=== PATIENT | male | born 1965 | race Caucasian/White ===

== ENCOUNTER 2021-11-16 07:08 | Inpatient (IN) | payer MEDICAID ==
[~2021-11-16] VITALS: Ht 170.2 cm; Wt 90.5 kg
[2021-11-16] MEDS ORDERED: acetaminophen 325mg tablet PO STA (07:10)
--- NOTE | 2021-11-16 07:23 | NUR ---
RT PAGED FOR POSSIBLE INTUBATION. INTUBATION NOT NEEDED. OXYGEN WEANED PER DR. DUKES REQUEST. PATIENT ARRIVED ON 15L NRB, SPO2 100%. RT SWITCHED PATIENT TO 10L SIMPLE MASK, SPO2 98%. PATIENT IN NO DISTRESS AT THIS TIME.
[2021-11-16] MEDS ORDERED: HYDROmorphone 1 mg/ml syringe IV ONE ×2 (07:35→09:20)
--- NOTE | 2021-11-16 07:39 | NUR ---
medication list faxed to pharmacy for med rec completion
[2021-11-16 07:43] LABS: BASOPHILS # (AUTO) 0.1 X10'3 (0-0.2); BASOPHILS % (AUTO) 0.3 % (0-1); EOSINOPHILS % (AUTO) 0.1 % (0-6); HEMATOCRIT 26.1 % (42.0-52.0); HEMOGLOBIN 8.6 g/dl (14.0-17.9); LYMPHOCYTES # (AUTO) 1.2 X10'3 (1.1-4.8); LYMPHOCYTES % (AUTO) 8.3 % (21-51); MEAN CORPUSCULAR HEMOGLOBIN 28.9 PG (27.0-31.0); MEAN CORPUSCULAR HGB CONC 33.2 g/dL (33.0-36.5); MEAN PLATELET VOLUME 7.8 FL (7.4-10.4); MONOCYTES # (AUTO) 1.1 X10'3 (0-0.9); MONOCYTES % (AUTO) 7.7 % (2-12); NEUTROPHILS # (AUTO) 12.3 X10'3 (1.8-7.7); NEUTROPHILS % (AUTO) 83.6 % (42-75); PLATELET COUNT 702 X10'3 (140-440); RED BLOOD COUNT 2.99 X10'6 (4.70-6.10); RED CELL DISTRIBUTION WIDTH 15.1 % (11.5-14.5); WHITE BLOOD COUNT 14.7 X10'3 (4.5-11.0)
[2021-11-16] MEDS ORDERED: iohexol 350MG/ML 100ml bottle IV ONE (07:50)
[2021-11-16 07:59] LABS: APTT 26 SECONDS (22-32)
[2021-11-16] MEDS ORDERED: acetaminophen 1,000mg/100ml IV 100 ML IV SCH (08:00)
[2021-11-16] MEDS ORDERED: acetaminophen 1,000mg/100ml IV 100 ML IV PRN (08:00)
[2021-11-16 08:04] LABS: ALANINE AMINOTRANSFERASE 12 U/L (12-78); ALBUMIN 1.6 G/DL (3.4-5.0); ALBUMIN/GLOBULIN RATIO 0.3 (1.1-1.5); ALKALINE PHOSPHATASE 118 IU/L (46-116); ANION GAP 7 (8-16); ASPARTATE AMINO TRANSFERASE 18 U/L (10-37); BILIRUBIN,TOTAL 1.7 MG/DL (0.1-1.0); BLOOD UREA NITROGEN 9 MG/DL (7-18); BUN/CREATININE RATIO 15.3 (5.4-32.0); CALCIUM 7.7 MG/DL (8.5-10.1); CHLORIDE 97 MMOL/L (99-107); CREATININE 0.59 MG/DL (0.60-1.10); GLUCOSE 254 MG/DL (70-104); MAGNESIUM 1.7 MG/DL (1.5-2.4); POTASSIUM 4.2 MMOL/L (3.5-5.1); SODIUM 129 MMOL/L (135-145); TOTAL CARBON DIOXIDE 25.5 MMOL/L (24-32); TOTAL PROTEIN 7.1 G/DL (6.4-8.2); eGFR > 90 ML/MIN
[2021-11-16] MEDS: normal saline 1000ml 1,000 ML IV SCH ×5 (08:04→22:29)
--- NOTE | 2021-11-16 08:15 | NUR ---
Pt back from CT. Updated on plan of care. Pt resting comfortably, no apparent distress/needs at this time.
[2021-11-16 08:46] LABS: NUCLEATED RED BLOOD CELLS 1 /100WBC (0-0); TOTAL CELLS COUNTED 100
[2021-11-16 08:47] LABS: PLATELET ESTIMATE INCREASED; POLYCHROMASIA 1+; STOMATOCYTES 1+
--- NOTE | 2021-11-16 09:03 | NUR ---
Pt states pain 02/24, will notify md. pt feels cool and clammy. warm blankets provided.
--- NOTE | 2021-11-16 09:40 | NUR ---
Trialed pt without O2. Pt needs 2-4L/min to maintain O2 94%.
[2021-11-16] MEDS ORDERED: piperacillin/tazo 3.375gm/50ml 50 ML IV ONE (09:50)
--- NOTE | 2021-11-16 10:40 | NUR ---
Assisted pt with urinal. UA obtained and sent.
[2021-11-16 10:57] LABS: CLARITY,URINE CLEAR (Clear); COLOR,URINE YELLOW (Yellow); GLUCOSE, URINE NEGATIVE (Neg); KETONES,URINE NEGATIVE (Neg); LEUKOCYTE ESTERASE ,URINE NEGATIVE (Neg); NITRITES, URINE NEGATIVE (Neg); OCCULT BLOOD,URINE NEGATIVE (Neg); PROTEIN,URINE NEGATIVE (Neg); UROBILINOGEN,URINE 0.2 E.U/dL (0.2-1.0)
[2021-11-16 10:59] LABS: UA COLLECTION TYPE NON-SPECIFIED
[2021-11-16] MEDS: HYDROmorphone 1 mg/ml syringe IV PRN ×3 (11:57→19:40)
[2021-11-16] MEDS ORDERED: ondansetron/PF 4mg/2ml inj IV PRN (12:05)
[2021-11-16] MEDS ORDERED: metoclopramide 5 mg/ml inj IV PRN (12:05)
[2021-11-16] MEDS ORDERED: acetaminophen 325mg tablet PO PRN ×2 (12:05)
[2021-11-16] MEDS ORDERED: mag hydrox/Alum hydrox/simeth 30ml oral suspension PO PRN (12:05)
[2021-11-16] MEDS ORDERED: morphine 2 MG/ML inj. syringe IV PRN ×2 (12:05)
[2021-11-16] MEDS ORDERED: HYDROcodone/acetaminophen 10/325mg tab PO PRN (12:05)
[2021-11-16] MEDS ORDERED: HYDROcodone/acetaminophen 5mg/325mg tablet PO PRN (12:05)
[2021-11-16] MEDS ORDERED: potassium CL 10mEq/100ml bag 100 ML IV PRN (12:05)
[2021-11-16] MEDS ORDERED: magnesium 2GM in 50ml NS 50 ML IV PRN (12:05)
[2021-11-16] MEDS ORDERED: POTASSIUM BICARB 20meq eff tab 20 MEQ TABLET.EFF PO PRN ×2 (12:05)
[2021-11-16] MEDS ORDERED: magnesium 4gm in 100ml NS 100 ML IV PRN (12:05)
[2021-11-16] MEDS ORDERED: ondansetron 4mg rapidly disintigrating tab PO PRN (12:05)
[2021-11-16] MEDS ORDERED: magnesium Cl slow-release 64mg tablet PO PRN (12:05)
[2021-11-16] MEDS ORDERED: dextrose 50%-water 50ml dispensing syringe IV PRN ×2 (12:30)
[2021-11-16] MEDS ORDERED: MESSAGE TO PHARMACY PO ONE (12:30)
[2021-11-16] MEDS ORDERED: LORazepam 0.5 MG tablet PO PRN (12:30)
[2021-11-16] MEDS ORDERED: DEXTROSE 15 GM of carb/4 tabs (each vial/BOTTLE has 4 tablets) PO PRN ×2 (12:30)
[2021-11-16] MEDS ORDERED: glucagon, human recombinant 1mg kit SUBCUT PRN (12:30)
[2021-11-16] MEDS ORDERED: insulin Lispro (HumaLOG) vial - multi-dose SQ SCH (12:30)
[2021-11-16] MEDS: CefTRIAXone 2gm/NS 100ml IVPB 100 ML IV SCH (12:54)
--- NOTE | 2021-11-16 13:00 | NUR ---
IV infiltrated. Leaking with minor pain when flushed. IV removed, cath intact. Will check with US to get IV.
[2021-11-16 13:08] LABS: HEMOGLOBIN A1C 8.2 % (4.5-6.2)
--- NOTE | 2021-11-16 13:43 | NUR ---
TPN Consult: Pt admitted from [facility] for acute respiratory failure, SVT, cholelithiasis, and likely aspiration per ER note. Pt hx bowel perforation requiring surgery 3 weeks ago at [facility] now w/ PEG, colostomy, and abdomen surgical wound w/ vac per EMR. Hx T2DM no A1C yet per EMR. RD contacted [facility] dietitian who reports pt on TPN for nutrition at [facility] BUSINESS OFFICE DIRECTOR though initially MD did have pt on full liquids for pleasure. RD d/w RN this admit who reports pt has central access port. RD also d/w MD via TC who reports pt is admitted awaiting bed and likely aspiration PNA w/ no sepsis at this time. TPN recs below given estimated needs; will monitor for PN tolerance and further nutrition intervention needs this admit. Rec: 1. Continuous TPN via central access per MD using 2:1 Clinimix E 5/15 at 100ml/hr goal w/ separate 250ml 20% ILE to run at 20.83ml/hr for 12 hours Q /Tue; to provide 2400ml volume/day, 120g AA, 360g DEX(2.76mg/kg/min), and avg 1847 kcals/day. Initiate at 30ml/hr and advance Q12 to goal as tolerated. 2. TG/PALB Q /; daily wts 3. monitor for PN tolerance and adjustment needs; consider stopping NS once PN advancement per physician discretion 4. IF functional gut/colostomy; consider PEG to optimize nutrition status as medically indicated 5. Consider A1C as medically indicated given hx T2DM initial Glu 254mg/dl per EMR Addendum: 11/16/21 at [address] Amended: Links added.
--- NOTE | 2021-11-16 13:50 | NUR ---
Received report from MOSES Herrera. awaiting patient arrival.
[2021-11-16] MEDS ORDERED: ENOX40SY7 SUBCUT (14:16)
[2021-11-16] MEDS ORDERED: LANTUS SQ (14:16)
[2021-11-16] MEDS ORDERED: POLY17PO10 PO (14:16)
[2021-11-16] MEDS ORDERED: [UNRECOGNIZED DRUG - CODE] IV (14:16)
[2021-11-16] MEDS ORDERED: PANT40VI2 IV (14:16)
[2021-11-16] MEDS ORDERED: PIPE3.3712 IV (14:16)
[2021-11-16] MEDS ORDERED: DOCU283E RC (14:16)
[2021-11-16] MEDS ORDERED: ACET-3080 PO (14:16)
[2021-11-16] MEDS ORDERED: LIDO700A32 TOP (14:16)
[2021-11-16] MEDS ORDERED: ALBU2.5V12 NEB (14:16)
[2021-11-16] MEDS ORDERED: [UNRECOGNIZED DRUG - CODE] IV (14:16)
[2021-11-16] MEDS ORDERED: INSU100V43 SQ (14:16)
[2021-11-16] MEDS ORDERED: LORA2VIA4 IJ (14:16)
[2021-11-16] MEDS ORDERED: [UNRECOGNIZED DRUG - CODE] IV (14:16)
--- NOTE | 2021-11-16 14:28 | NUR ---
Page sent to RT... [id number] Michael Mcleod: patient requesting RT treatment tamiko! thanks!
[2021-11-16 15:00] VITALS: BP 155/61
[2021-11-16] MEDS ORDERED: albuterol 2.5 MG/3 ML nebule NEB SCH (15:00)
[2021-11-16] MEDS: LORazepam 2 mg/ml vial IV PRN (15:15)
--- NOTE | 2021-11-16 15:27 | NUR ---
PAGER ID: [phone] MESSAGE: [phone] Jose Guadalupe Mcleod: Patient is requesting respiratory treatment. would you like me to put in a RT eval and treat order? Also he is requesting to drink fluids and have his peg attached to suction. please advise. patrizia [phone]
--- NOTE | 2021-11-16 15:32 | NUR ---
Page sent to RT.. [id number] Jose Guadalupe Mcleod: RT eval and treat orders in. thank you! Addendum: 11/16/21 at 1532 by Sherrill Hauser RN Amended: Links added.
[2021-11-16] MEDS: CLINDAMYCIN 300mg/NS 50ml IVPB 50 ML IV SCH ×2 (16:58→19:39)
[2021-11-16 18:00] VITALS: BP 105/65
--- NOTE | 2021-11-16 18:13 | NUR ---
Problems reprioritized. Patient report given, questions answered & plan of care reviewed with MOSES Chamorro.
[2021-11-16] MEDS: heparin, porcine 5000 units/ml vial SQ SCH (19:39)
[2021-11-16] MEDS: K and/or MAG REPLACEMENT MC SCH (20:00)
--- NOTE | 2021-11-16 20:00 | NUR ---
Wound noted on the back of patients head. Photo taken and placed in chart. See description in flow sheets. Patient states "it happened during surgery".
[2021-11-16] MEDS ORDERED: ZINC/COPPER/MANGANESE/SELENIUM 1 ML, chromic chloride inj. 10 MCG in AA 5%/D15W/ELECTRO... IV SCH (21:00)
[2021-11-16] MEDS: insulin glargine (Lantus) pen - multi-dose SQ SCH (21:00)
--- NOTE | 2021-11-16 21:22 | NUR ---
Pt reports anxiety, current ativan order Q12, paged hospitalist Maurou to see if an increase in frequency is appropriate. Also pt is requesting breathing treatment however did not meet RT criteria, pt states he uses an inhaler at home prn. notified as well. Currently pt does not appear short of breath, lung sounds are clear bilaterally. Orders received for a one time dose of ativan 0.5 mg as well as an ok for albuterol breathing treatments.
[2021-11-16] MEDS ORDERED: LORazepam 2 mg/ml vial IM ONE (21:30)
[2021-11-16 22:00] VITALS: BP 116/64
[2021-11-17] MEDS ORDERED: LORazepam 2 mg/ml vial IV ONE (00:45)
[2021-11-17] MEDS: HYDROmorphone 1 mg/ml syringe IV PRN ×4 (00:50→10:25)
[2021-11-17 02:00] VITALS: BP 101/61
[2021-11-17] MEDS: CLINDAMYCIN 300mg/NS 50ml IVPB 50 ML IV SCH ×4 (02:44→20:27)
[2021-11-17] MEDS: normal saline 1000ml 1,000 ML IV SCH ×3 (03:46→10:25)
[2021-11-17 06:00] VITALS: BP 104/57
[2021-11-17 06:36] LABS: HEMOGLOBIN 8.3 g/dl (14.0-17.9); LYMPHOCYTES # (AUTO) 1.7 X10'3 (1.1-4.8); MONOCYTES # (AUTO) 0.7 X10'3 (0-0.9)
[2021-11-17 06:37] LABS: BASOPHILS % (AUTO) 0.4 % (0-1); EOSINOPHILS % (AUTO) 0.2 % (0-6); HEMATOCRIT 25.9 % (42.0-52.0); MEAN CORPUSCULAR HEMOGLOBIN 27.7 PG (27.0-31.0); MEAN CORPUSCULAR HGB CONC 32.1 g/dL (33.0-36.5); MEAN CORPUSCULAR VOLUME 86.1 FL (78-98); MEAN PLATELET VOLUME 7.7 FL (7.4-10.4); MONOCYTES % (AUTO) 9.3 % (2-12); NEUTROPHILS # (AUTO) 5.2 X10'3 (1.8-7.7); NEUTROPHILS % (AUTO) 68.1 % (42-75); PLATELET COUNT 655 X10'3 (140-440); RED CELL DISTRIBUTION WIDTH 15.5 % (11.5-14.5); WHITE BLOOD COUNT 7.7 X10'3 (4.5-11.0)
[2021-11-17 07:12] LABS: ALANINE AMINOTRANSFERASE 13 U/L (12-78); ALBUMIN 1.4 G/DL (3.4-5.0); ALBUMIN/GLOBULIN RATIO 0.3 (1.1-1.5); ALKALINE PHOSPHATASE 104 IU/L (46-116); ANION GAP 2 (8-16); ASPARTATE AMINO TRANSFERASE 17 U/L (10-37); BILIRUBIN,TOTAL 1.1 MG/DL (0.1-1.0); BLOOD UREA NITROGEN 9 MG/DL (7-18); BUN/CREATININE RATIO 16.4 (5.4-32.0); CALCIUM 8.1 MG/DL (8.5-10.1); CHLORIDE 99 MMOL/L (99-107); CREATININE 0.55 MG/DL (0.60-1.10); GLUCOSE 163 MG/DL (70-104); PHOSPHORUS 4.4 MG/DL (2.3-4.5); POTASSIUM 4.1 MMOL/L (3.5-5.1); PREALBUMIN 7.7 MG/DL (19-36); SODIUM 131 MMOL/L (135-145); TOTAL CARBON DIOXIDE 29.9 MMOL/L (24-32); TOTAL PROTEIN 6.5 G/DL (6.4-8.2); TRIGLYCERIDES 211 MG/DL (20-135); eGFR > 90 ML/MIN
[2021-11-17] MEDS: albuterol 2.5 MG/3 ML nebule NEB PRN (07:14)
--- NOTE | 2021-11-17 07:34 | NUR ---
PAGER ID: [phone] MESSAGE: [phone]. Can we get orders for PICC line? Patient only has single access port and has lipids, TPN, IV Abx ordered. Jennifer LOPES [phone]
[2021-11-17] MEDS: CefTRIAXone 2gm/NS 100ml IVPB 100 ML IV SCH (07:45)
[2021-11-17] MEDS: heparin, porcine 5000 units/ml vial SQ SCH ×2 (07:45→20:27)
[2021-11-17] MEDS: K and/or MAG REPLACEMENT MC SCH ×2 (08:00→20:00)
[2021-11-17] MEDS ORDERED: MVI, adult No.4 with vit. K 10 ML in dextrose 5% water 500ml 500 ML IV SCH ×2 (08:00)
[2021-11-17] MEDS ORDERED: fat emulsion IV bag 250 ML IV SCH (08:00)
--- NOTE | 2021-11-17 09:58 | NUR ---
F/u 11/17: Pt A1C results 8.2%; not appropriate for DM ed at this time given TPN for sole nutrition. Addendum: 11/17/21 at [address] Amended: Links added.
[2021-11-17] MEDS: albuterol 2.5 MG/3 ML nebule NEB SCH ×3 (10:38→19:37)
[2021-11-17 11:00] VITALS: BP 155/65
--- NOTE | 2021-11-17 12:11 | NUR ---
Paged dietary regarding nutritions consult about TPN per Dr. Melquiades rodrigez.
--- NOTE | 2021-11-17 12:52 | NUR ---
PAGER ID: [phone] MESSAGE: [phone]. Pharmacy is dc'ing prn dilaudid. Can I get new prn dilaudid orders? Jennifer LOPES [phone]
--- NOTE | 2021-11-17 12:59 | NUR ---
Case management paged regarding discharge plan back to [facility].
[2021-11-17] MEDS: LORazepam 2 mg/ml vial IV PRN ×2 (14:34→20:48)
[2021-11-17 15:00] VITALS: BP 101/62
--- NOTE | 2021-11-17 15:26 | NUR ---
PAGER ID: [phone] MESSAGE: [phone]. Patient asking to increase frequency of morphine. Jennifer LOPES [phone]
[2021-11-17] MEDS ORDERED: HYDROcodone/acetaminophen 5mg/325mg tablet PO PRN (15:30)
[2021-11-17] MEDS ORDERED: HYDROcodone/acetaminophen 10/325mg tab PO PRN (15:30)
[2021-11-17] MEDS ORDERED: morphine 2 MG/ML inj. syringe IV PRN (15:30)
[2021-11-17] MEDS: insulin regular, human U-100 3ml vial - multi-dose SQ SCH ×2 (15:52→20:47)
[2021-11-17] MEDS ORDERED: DOCUSATE SODIUM RC PRN (16:35)
[2021-11-17] MEDS ORDERED: non-formulary drug (Acetaminophen 1 TAB) PO PRN (16:35)
[2021-11-17] MEDS ORDERED: polyethylene glycol 3350 17gm powd pack PO PRN (16:35)
[2021-11-17] MEDS: ZINC/COPPER/MANGANESE/SELENIUM 0.5 ML, chromic chloride inj. 5 MCG in AA 5%/D15W/ELECTR... IV SCH (17:02)
[2021-11-17] MEDS: morphine 2 MG/ML inj. syringe IV PRN (17:20)
--- NOTE | 2021-11-17 17:33 | NUR ---
Lipids were not administered as patient would have needed central line. Dr. Arnett requested to hold lipids as patient would most likely be discharged back to [facility] if cleared by cardiology, which he was.
[2021-11-17 18:00] VITALS: BP 132/76
--- NOTE | 2021-11-17 18:22 | NUR ---
Problems reprioritized. Patient report given, questions answered & plan of care reviewed with Mary Lou LOPES.
--- NOTE | 2021-11-17 18:37 | NUR ---
Patient in room PCU 3023. I have received report from Jennifer LOPES and had the opportunity to ask questions and assume patient care.
--- NOTE | 2021-11-17 19:53 | NUR ---
Patient in room PCU 3023. I have received report from phani gaines and had the opportunity to ask questions and assume patient care.
[2021-11-17] MEDS ORDERED: non-formulary drug (Albuterol Sulfate 1 VIAL) NEB SCH (20:00)
[2021-11-17] MEDS: insulin glargine (Lantus) pen - multi-dose SQ SCH (20:34)
[2021-11-17 22:00] VITALS: BP 154/77
[2021-11-18 02:00] VITALS: BP 144/84
[2021-11-18] MEDS: insulin regular, human U-100 3ml vial - multi-dose SQ SCH ×2 (02:32→21:47)
[2021-11-18] MEDS: CLINDAMYCIN 300mg/NS 50ml IVPB 50 ML IV SCH ×4 (02:33→20:08)
[2021-11-18] MEDS: ZINC/COPPER/MANGANESE/SELENIUM 0.5 ML, chromic chloride inj. 5 MCG in AA 5%/D15W/ELECTR... IV SCH ×3 (02:44→23:06)
[2021-11-18] MEDS: morphine 2 MG/ML inj. syringe IV PRN ×5 (05:31→20:09)
--- NOTE | 2021-11-18 05:54 | NUR ---
I have reviewed and agree with all interventions, assessments performed and documented by Dexter Abdalla LVN .
[2021-11-18 06:00] VITALS: BP 122/75
--- NOTE | 2021-11-18 06:31 | NUR ---
Problems reprioritized. Patient report given, questions answered & plan of care reviewed with kenny gaines.
--- NOTE | 2021-11-18 06:32 | NUR ---
Problems reprioritized. Patient report given, questions answered & plan of care reviewed with Florina LOPES.
[2021-11-18] MEDS: albuterol 2.5 MG/3 ML nebule NEB SCH ×4 (06:50→19:20)
[2021-11-18 07:03] LABS: HEMOGLOBIN 8.6 g/dl (14.0-17.9)
[2021-11-18 07:05] LABS: BASOPHILS % (AUTO) 0.5 % (0-1); EOSINOPHILS % (AUTO) 0.3 % (0-6); HEMATOCRIT 26.4 % (42.0-52.0); LYMPHOCYTES # (AUTO) 1.6 X10'3 (1.1-4.8); LYMPHOCYTES % (AUTO) 19.3 % (21-51); MEAN CORPUSCULAR HEMOGLOBIN 28.2 PG (27.0-31.0); MEAN CORPUSCULAR HGB CONC 32.6 g/dL (33.0-36.5); MEAN CORPUSCULAR VOLUME 86.4 FL (78-98); MEAN PLATELET VOLUME 7.5 FL (7.4-10.4); MONOCYTES % (AUTO) 11.7 % (2-12); NEUTROPHILS # (AUTO) 5.7 X10'3 (1.8-7.7); NEUTROPHILS % (AUTO) 68.2 % (42-75); PLATELET COUNT 605 X10'3 (140-440); RED BLOOD COUNT 3.05 X10'6 (4.70-6.10); RED CELL DISTRIBUTION WIDTH 15.2 % (11.5-14.5); WHITE BLOOD COUNT 8.4 X10'3 (4.5-11.0)
[2021-11-18 07:32] LABS: ALANINE AMINOTRANSFERASE 12 U/L (12-78); ALBUMIN 1.5 G/DL (3.4-5.0); ALBUMIN/GLOBULIN RATIO 0.3 (1.1-1.5); ALKALINE PHOSPHATASE 111 IU/L (46-116); ANION GAP 5 (8-16); ASPARTATE AMINO TRANSFERASE 12 U/L (10-37); BILIRUBIN,TOTAL 1.1 MG/DL (0.1-1.0); BLOOD UREA NITROGEN 10 MG/DL (7-18); BUN/CREATININE RATIO 19.2 (5.4-32.0); CALCIUM 8.1 MG/DL (8.5-10.1); CHLORIDE 98 MMOL/L (99-107); CREATININE 0.52 MG/DL (0.60-1.10); GLUCOSE 232 MG/DL (70-104); POTASSIUM 3.9 MMOL/L (3.5-5.1); SODIUM 133 MMOL/L (135-145); TOTAL CARBON DIOXIDE 29.9 MMOL/L (24-32); eGFR > 90 ML/MIN
[2021-11-18] MEDS ORDERED: [UNRECOGNIZED DRUG - OTHER] IV SCH (08:00)
[2021-11-18] MEDS ORDERED: DEXTROSE 20% IV SCH (08:00)
[2021-11-18] MEDS ORDERED: AMINO ACIDS IV SCH (08:00)
[2021-11-18] MEDS ORDERED: OLIVE OIL IV SCH (08:00)
[2021-11-18] MEDS: heparin, porcine 5000 units/ml vial SQ SCH ×2 (08:00→20:08)
[2021-11-18] MEDS ORDERED: pantoprazole 40 MG/NS 100ML add-vantage BAG IV SCH (08:00)
[2021-11-18] MEDS ORDERED: FISH OIL IV SCH (08:00)
[2021-11-18] MEDS ORDERED: MEDIUM CHAIN TRIGLYCERIDES IV SCH (08:00)
[2021-11-18] MEDS: K and/or MAG REPLACEMENT MC SCH ×2 (08:00→20:00)
[2021-11-18] MEDS ORDERED: Dextrose 10%-water IV solution 1,000 ML IV PRN (09:30)
[2021-11-18] MEDS: pantoprazole 40MG/NS 100ML BAG 100 ML IV SCH (09:37)
[2021-11-18] MEDS: CefTRIAXone 2gm/NS 100ml IVPB 100 ML IV SCH (09:37)
[2021-11-18] MEDS: LIDOcaine 5% patch TP SCH (09:39)
--- NOTE | 2021-11-18 10:27 | NUR ---
F/u: TC to RN who states pt's PEG is still draining, unlikely to be able to use for some time. Per clinical pharmacist, current TPN formula stock is low, see recs below for new formula once current one runs out. Unable to meet protein needs w/o exceeding maximum lipid load. Rec: 1). Continuous TPN via central access per MD using 2:1 Clinimix E 5/15 at 100ml/hr goal w/ separate 250ml 20% ILE to run at 20.83ml/hr for 12 hours Q /Tue; to provide 2400ml volume/day, 120g AA, 360g DEX(2.76mg/kg/min), and avg 1847 kcals/day. Initiate at 30ml/hr and advance Q12 to goal as tolerated. 2) Once current formula runs out: Continuous TPN using Kabiven E 3:1 at 96ml/hr goal to provide 2304ml volume, 76g AA, 225g dextrose (1.73mg/kg/min GIR) and 90g lipids (1g/kg lipid load) 3) TG/PALB Q /; daily wts 4) monitor for PN tolerance and adjustment needs; consider stopping NS once PN advancement per physician discretion 5) IF functional gut/colostomy; consider PEG to optimize nutrition status as medically indicated 6) DM ed deferred until more appropriate currently on TPN for sole nutrition; A1C 8.2% per EMR Addendum: 11/18/21 at [address] Amended: Links added.
[2021-11-18 11:00] VITALS: BP 138/71
[2021-11-18] MEDS ORDERED: [UNRECOGNIZED DRUG - REMARK] IV SCH ×4 (14:50)
[2021-11-18 15:00] VITALS: BP 123/73
[2021-11-18] MEDS ORDERED: POTASSIUM BICARB 20meq eff tab 20 MEQ TABLET.EFF PEG PRN ×2 (16:33→16:37)
[2021-11-18] MEDS ORDERED: LORazepam 0.5 MG tablet PEG PRN (16:33)
[2021-11-18] MEDS ORDERED: DEXTROSE 15 GM of carb/4 tabs (each vial/BOTTLE has 4 tablets) PEG PRN ×2 (16:33)
[2021-11-18] MEDS ORDERED: HYDROcodone/acetaminophen 7.5MG/325MG per 15ml UD CUP PEG PRN ×2 (16:35)
[2021-11-18] MEDS ORDERED: mag hydrox/Alum hydrox/simeth 30ml oral suspension PEG PRN (16:35)
[2021-11-18] MEDS ORDERED: acetaminophen 325mg/10.15ml oral unit dose solution PEG PRN ×2 (16:35)
[2021-11-18] MEDS ORDERED: polyethylene glycol 3350 17gm powd pack PEG PRN (16:36)
[2021-11-18] MEDS ORDERED: ondansetron 4mg/5ml UD cup PEG PRN (16:40)
[2021-11-18 18:00] VITALS: BP 105/57
[2021-11-18] MEDS: LORazepam 2 mg/ml vial IV PRN (20:36)
[2021-11-18] MEDS: insulin glargine (Lantus) pen - multi-dose SQ SCH (21:44)
[2021-11-18 22:00] VITALS: BP 132/67
[2021-11-18] MEDS: [UNRECOGNIZED DRUG - REMARK] IV SCH ×8 (22:46→22:53)
[2021-11-19] MEDS: morphine 2 MG/ML inj. syringe IV PRN ×3 (00:11→09:53)
[2021-11-19 02:00] VITALS: BP 117/56
[2021-11-19] MEDS: albuterol 2.5 MG/3 ML nebule NEB PRN (02:36)
[2021-11-19] MEDS: CLINDAMYCIN 300mg/NS 50ml IVPB 50 ML IV SCH ×4 (02:40→19:59)
[2021-11-19] MEDS: LORazepam 2 mg/ml vial IV PRN ×2 (02:53→20:12)
[2021-11-19] MEDS: albuterol 2.5 MG/3 ML nebule NEB SCH ×4 (07:11→19:39)
[2021-11-19 07:19] LABS: BASOPHILS # (AUTO) 0.1 X10'3 (0-0.2); BASOPHILS % (AUTO) 0.8 % (0-1); EOSINOPHILS % (AUTO) 0.3 % (0-6); HEMATOCRIT 25.2 % (42.0-52.0); HEMOGLOBIN 8.3 g/dl (14.0-17.9); LYMPHOCYTES # (AUTO) 1.8 X10'3 (1.1-4.8); LYMPHOCYTES % (AUTO) 20.5 % (21-51); MEAN CORPUSCULAR HEMOGLOBIN 28.8 PG (27.0-31.0); MEAN CORPUSCULAR HGB CONC 32.9 g/dL (33.0-36.5); MEAN CORPUSCULAR VOLUME 87.5 FL (78-98); MEAN PLATELET VOLUME 7.5 FL (7.4-10.4); MONOCYTES # (AUTO) 0.7 X10'3 (0-0.9); MONOCYTES % (AUTO) 7.9 % (2-12); NEUTROPHILS # (AUTO) 6.1 X10'3 (1.8-7.7); NEUTROPHILS % (AUTO) 70.5 % (42-75); PLATELET COUNT 530 X10'3 (140-440); RED BLOOD COUNT 2.87 X10'6 (4.70-6.10); RED CELL DISTRIBUTION WIDTH 15.6 % (11.5-14.5); WHITE BLOOD COUNT 8.7 X10'3 (4.5-11.0)
[2021-11-19 07:31] LABS: ALANINE AMINOTRANSFERASE 8 U/L (12-78); ALBUMIN 1.4 G/DL (3.4-5.0); ALBUMIN/GLOBULIN RATIO 0.3 (1.1-1.5); ALKALINE PHOSPHATASE 125 IU/L (46-116); ANION GAP 7 (8-16); ASPARTATE AMINO TRANSFERASE 14 U/L (10-37); BLOOD UREA NITROGEN 9 MG/DL (7-18); BUN/CREATININE RATIO 17.3 (5.4-32.0); CALCIUM 7.9 MG/DL (8.5-10.1); CHLORIDE 99 MMOL/L (99-107); CREATININE 0.52 MG/DL (0.60-1.10); GLUCOSE 224 MG/DL (70-104); POTASSIUM 4.2 MMOL/L (3.5-5.1); SODIUM 133 MMOL/L (135-145); TOTAL CARBON DIOXIDE 26.7 MMOL/L (24-32); TOTAL PROTEIN 6.8 G/DL (6.4-8.2); eGFR > 90 ML/MIN
[2021-11-19 07:56] VITALS: BP 119/68
[2021-11-19] MEDS: K and/or MAG REPLACEMENT MC SCH ×2 (08:00→19:13)
--- NOTE | 2021-11-19 08:46 | NUR ---
Reassessment: Pt continues on TPN, now w/ formula change as previous formula out of stock. Unable to meet protein needs w/o exceeding max lipid load on current formula. Pt able to have ice chips per MD note. LBM 11/17. No change to recommendations at this time, will continue to monitor. Rec: 1).Continuous TPN using Kabiven E 3:1 at 96ml/hr goal to provide 2304ml volume, 1969kcals, 76g AA, 225g dextrose (1.73mg/kg/min GIR) and 90g lipids (1g/kg lipid load) 2) TG/PALB Q /; daily wts 3) monitor for PN tolerance and adjustment needs; consider stopping NS once PN advancement per physician discretion 4) IF functional gut/colostomy; consider PEG to optimize nutrition status as medically indicated 5) DM ed deferred until more appropriate currently on TPN for sole nutrition; A1C 8.2% per EMR Addendum: 11/19/21 at [address] Amended: Links added.
[2021-11-19] MEDS: CefTRIAXone 2gm/NS 100ml IVPB 100 ML IV SCH (09:56)
[2021-11-19] MEDS: pantoprazole 40MG/NS 100ML BAG 100 ML IV SCH (09:56)
[2021-11-19] MEDS: heparin, porcine 5000 units/ml vial SQ SCH ×2 (09:56→19:59)
[2021-11-19] MEDS: LIDOcaine 5% patch TP SCH (09:57)
[2021-11-19] MEDS: insulin regular, human U-100 3ml vial - multi-dose SQ SCH ×2 (10:57→16:17)
[2021-11-19 11:00] VITALS: BP 123/66
--- NOTE | 2021-11-19 12:50 | NUR ---
Kitty YOO regarding wifes concern in regards to open abdominal wound...There is a change in color to the inner aspect of the wound. There is a bag covering the wound that has some stool looking material in it. is questioning that perhaps this is another fistula. Also pt and are requesting an increase in pain medication. Pt is not opiod naive and can tolerate higher doses of narcotics as he was on a pain pump with Dilaudid before. Currently he is only receiving 2mg of Morphine q 4 hrs and this barely touches his pain. Awaiting a call back from .
[2021-11-19] MEDS ORDERED: morphine 2 MG/ML inj. syringe IV PRN (13:10)
[2021-11-19] MEDS ORDERED: morphine 2 MG/ML inj. syringe IV ONE (13:15)
--- NOTE | 2021-11-19 14:24 | NUR ---
PRESSURE ULCER EDUCATION: DEFINITION: A pressure ulcer is an area of skin that breaks down when you stay in one position too long. The constant pressure against the skin reduces the blood flow to that area and the affected tissue dies. CAUSES: "Being bedridden or in a wheelchair "Fragile skin "Having a chronic condition, such as diabetes or vascular disease "Inability to move certain parts of your body without assistance "Older age "Incontinence of urine or stool SYMPTOMS: "A reddened area that DOES NOT turn white when pressed on - this can be the beginning of a pressure ulcer "A blister, deep sore or a crater - these can be advanced pressure ulcers FIRST AID: "Relieve the pressure on this area "Keep the area clean and dry "Call your primary doctor if you see any of the above symptoms "DO NOT massage the area "DO NOT use a donut shaped or ring shaped pillow- these actually interfere with the blood flow and cause complications PREVENTION: "Check for pressure ulcers everyday "Change position at least every two hours to relieve pressure "Use items that help relieve pressure- pillows, sheepskin, foam padding, and powders. "Keep skin clean and dry "Eat healthy well balanced meals "Exercise daily IF YOU SEE ANY OF THESE SYMPTOMS WHILE IN THE HOSPITAL - TELL YOUR NURSE IMMEDIATELY. IF YOU SEE ANY OF THESE SYMPTOMS WHILE AT HOME OR HAVE ANY QUESTIONS OR CONCERNS ABOUT PRESSURE ULCERS - CALL YOUR PRIMARY DOCTOR IMMEDIATELY. Addendum: 11/19/21 at 1425 by Florina Eddy LVN Amended: Links added.
[2021-11-19 15:00] VITALS: BP 116/62
[2021-11-19] MEDS: morphine 4 MG/ML inj SYRINge IV PRN ×2 (16:20→20:00)
[2021-11-19] MEDS: [UNRECOGNIZED DRUG - REMARK] IV SCH ×4 (16:31)
[2021-11-19 18:00] VITALS: BP 105/56
[2021-11-19] MEDS: insulin glargine (Lantus) pen - multi-dose SQ SCH (21:00)
[2021-11-19 22:00] VITALS: BP 102/57
[2021-11-20] MEDS: morphine 4 MG/ML inj SYRINge IV PRN ×5 (00:15→17:11)
[2021-11-20 02:00] VITALS: BP 103/58
[2021-11-20] MEDS: CLINDAMYCIN 300mg/NS 50ml IVPB 50 ML IV SCH (02:18)
[2021-11-20] MEDS: [UNRECOGNIZED DRUG - REMARK] IV SCH ×4 (02:48)
[2021-11-20] MEDS: albuterol 2.5 MG/3 ML nebule NEB PRN (03:27)
[2021-11-20 06:30] VITALS: BP 105/56
--- NOTE | 2021-11-20 06:45 | NUR ---
Patient in room PCU 3023. I have received report from MOSES Feng and had the opportunity to ask questions and assume patient care.
[2021-11-20 06:56] LABS: BASOPHILS # (AUTO) 0.1 X10'3 (0-0.2); BASOPHILS % (AUTO) 0.7 % (0-1); EOSINOPHILS % (AUTO) 0.3 % (0-6); HEMOGLOBIN 7.3 g/dl (14.0-17.9); LYMPHOCYTES # (AUTO) 1.3 X10'3 (1.1-4.8); LYMPHOCYTES % (AUTO) 17.5 % (21-51); MEAN CORPUSCULAR HEMOGLOBIN 29.3 PG (27.0-31.0); MEAN CORPUSCULAR HGB CONC 33.9 g/dL (33.0-36.5); MEAN CORPUSCULAR VOLUME 86.5 FL (78-98); MEAN PLATELET VOLUME 7.5 FL (7.4-10.4); MONOCYTES # (AUTO) 0.7 X10'3 (0-0.9); MONOCYTES % (AUTO) 9.3 % (2-12); NEUTROPHILS # (AUTO) 5.5 X10'3 (1.8-7.7); NEUTROPHILS % (AUTO) 72.2 % (42-75); PLATELET COUNT 494 X10'3 (140-440); RED BLOOD COUNT 2.48 X10'6 (4.70-6.10); RED CELL DISTRIBUTION WIDTH 15.4 % (11.5-14.5); WHITE BLOOD COUNT 7.6 X10'3 (4.5-11.0)
[2021-11-20 07:15] LABS: HEMATOCRIT 21.4 % (42.0-52.0)
[2021-11-20 07:17] LABS: ALANINE AMINOTRANSFERASE 10 U/L (12-78); ALBUMIN 1.4 G/DL (3.4-5.0); ALBUMIN/GLOBULIN RATIO 0.3 (1.1-1.5); ALKALINE PHOSPHATASE 130 IU/L (46-116); ANION GAP 6 (8-16); ASPARTATE AMINO TRANSFERASE 14 U/L (10-37); BLOOD UREA NITROGEN 7 MG/DL (7-18); BUN/CREATININE RATIO 14.3 (5.4-32.0); CHLORIDE 98 MMOL/L (99-107); CREATININE 0.49 MG/DL (0.60-1.10); GLUCOSE 224 MG/DL (70-104); POTASSIUM 4.3 MMOL/L (3.5-5.1); SODIUM 132 MMOL/L (135-145); TOTAL CARBON DIOXIDE 28.3 MMOL/L (24-32); TOTAL PROTEIN 6.4 G/DL (6.4-8.2); eGFR > 90 ML/MIN
[2021-11-20] MEDS: albuterol 2.5 MG/3 ML nebule NEB SCH ×3 (07:22→15:16)
[2021-11-20] MEDS: K and/or MAG REPLACEMENT MC SCH (08:00)
[2021-11-20] MEDS ORDERED: clindamycin 300mg/D5W 50mL 50 ML IV SCH (08:41)
[2021-11-20] MEDS: pantoprazole 40MG/NS 100ML BAG 100 ML IV SCH (08:45)
[2021-11-20] MEDS ORDERED: clindamycin 300mg/D5W 50mL 50 ML IV ONE (08:46)
[2021-11-20] MEDS: heparin, porcine 5000 units/ml vial SQ SCH (08:49)
[2021-11-20] MEDS: CefTRIAXone 2gm/NS 100ml IVPB 100 ML IV SCH (08:49)
[2021-11-20] MEDS: LIDOcaine 5% patch TP SCH (08:50)
[2021-11-20] MEDS ORDERED: morphine 4 MG/ML inj SYRINge IV PRN (09:45)
[2021-11-20] MEDS: insulin regular, human U-100 3ml vial - multi-dose SQ SCH ×2 (10:04→15:17)
[2021-11-20 11:00] VITALS: BP 100/61
[2021-11-20 15:00] VITALS: BP 116/65
--- NOTE | 2021-11-20 15:25 | NUR ---
Pt transferred to [facility] via [facility] ambulance transport. IV & portacath intact. TPN removed at time of transfer. Addendum: 11/20/21 at 2013 by Kristyn Shelton RN Time is 1725 NOT 1525
== END 2021-11-20 17:30 | DRG 720 ==
LOC: ER 07:08 → ED HOLD 12:13 → PCU 3S 14:04
PROVIDERS: ADMIT Internal Medicine; ATTEND Internal Medicine
PROC: B32T1ZZ Computerized Tomography (CT Scan) of Left Pulmonary Artery using Low Osmolar Contrast (ICD-10-PCS; principal; 2021-11-16)
PROC: B3201ZZ Computerized Tomography (CT Scan) of Thoracic Aorta using Low Osmolar Contrast (ICD-10-PCS; 2021-11-16)
PROC: B32S1ZZ Computerized Tomography (CT Scan) of Right Pulmonary Artery using Low Osmolar Contrast (ICD-10-PCS; 2021-11-16)
DX: A41.9 Sepsis, unspecified organism (principal); J96.01 Acute respiratory failure with hypoxia; J69.0 Pneumonitis due to inhalation of food and vomit; E87.1 Hypo-osmolality and hyponatremia; I24.8 Other forms of acute ischemic heart disease; D64.9 Anemia, unspecified; E11.65 Type 2 diabetes mellitus with hyperglycemia; I47.1 Supraventricular tachycardia; I49.9 Cardiac arrhythmia, unspecified; R23.0 Cyanosis; F41.9 Anxiety disorder, unspecified; I10 Essential (primary) hypertension; I49.3 Ventricular premature depolarization; J45.909 Unspecified asthma, uncomplicated; Z90.49 Acquired absence of other specified parts of digestive tract; Z56.0 Unemployment, unspecified; Z88.1 Allergy status to other antibiotic agents; Z79.899 Other long term (current) drug therapy; Z79.4 Long term (current) use of insulin; Z87.891 Personal history of nicotine dependence
CPT/HCPCS: 36415; 71045; 71275; 80053; 81003; 82948; 83036; 83605; 83735; 84100; 84134; 84145; 84478; 84484; 85007; 85025; 85610; 85730; 87040; 87081; 93005; 93306; 94640; 94760; 97110; 97161; 97530; 99291; C9113; G0378; J0131; J0696; J1170; J1644; J1815; J2060; J2270; J2543; J3490; J7030; J7060; Q9967

== ENCOUNTER 2021-11-25 09:20 | Emergency (ER) | payer MEDICAID ==
[~2021-11-25] VITALS: Ht 170.2 cm; Wt 81.8 kg
[~2021-11-25 09:20] MED LIST: ACET-3080 PO; ALBU2.5V12 NEB; DOCU283E RC; ENOX40SY7 SUBCUT; INSU100V43 SQ; LANTUS SQ; LIDO700A32 TOP; LORA2VIA4 IJ; PANT40VI2 IV; PIPE3.3712 IV; POLY17PO10 PO; [UNRECOGNIZED DRUG - CODE] IV; [UNRECOGNIZED DRUG - CODE] IV; [UNRECOGNIZED DRUG - CODE] IV
--- NOTE | 2021-11-25 10:24 | NUR ---
QIAN CALLED AT DR ALMENDAREZ REQUEST. REQUESTED THAT PT'S THAT SENT PT OVER FOR ABD CT SCAN TO CALL TO CLEARIFY WHAT HE IS LOOKING FOR WITH THE CT AND WHAT HE WANTS DONE SHOULD CT SHOWS ISSUES. QIAN TOMAS CONFIRMED REQUEST AND WILL CONTACT PT'S
--- NOTE | 2021-11-25 11:00 | NUR ---
Danielle attempted IV x2 without success. Pt difficult stick. Came with 22g RFA, may need an IV ([address]) [address]. Does have port, hoping to use it for CT.
[2021-11-25 11:06] LABS: BASOPHILS # (AUTO) 0.1 X10'3 (0-0.2); BASOPHILS % (AUTO) 0.7 % (0-1); EOSINOPHILS # (AUTO) 0.1 X10'3 (0-0.9); EOSINOPHILS % (AUTO) 0.8 % (0-6); HEMATOCRIT 29.7 % (42.0-52.0); LYMPHOCYTES # (AUTO) 1.6 X10'3 (1.1-4.8); LYMPHOCYTES % (AUTO) 19.5 % (21-51); MEAN CORPUSCULAR HEMOGLOBIN 28.8 PG (27.0-31.0); MEAN CORPUSCULAR HGB CONC 33.6 g/dL (33.0-36.5); MEAN CORPUSCULAR VOLUME 85.8 FL (78-98); MEAN PLATELET VOLUME 7.5 FL (7.4-10.4); MONOCYTES # (AUTO) 0.7 X10'3 (0-0.9); MONOCYTES % (AUTO) 8.8 % (2-12); NEUTROPHILS # (AUTO) 5.7 X10'3 (1.8-7.7); NEUTROPHILS % (AUTO) 70.2 % (42-75); PLATELET COUNT 445 X10'3 (140-440); RED BLOOD COUNT 3.46 X10'6 (4.70-6.10); RED CELL DISTRIBUTION WIDTH 15.2 % (11.5-14.5); WHITE BLOOD COUNT 8.1 X10'3 (4.5-11.0)
[2021-11-25] MEDS ORDERED: HYDROmorphone 1 mg/ml syringe IV ONE ×3 (11:10→17:45)
[2021-11-25] MEDS ORDERED: albuterol 2.5 MG/3 ML nebule NEB ONE (11:10)
[2021-11-25 11:18] LABS: ALANINE AMINOTRANSFERASE 20 U/L (12-78); ALBUMIN 1.6 G/DL (3.4-5.0); ALBUMIN/GLOBULIN RATIO 0.3 (1.1-1.5); ALKALINE PHOSPHATASE 141 IU/L (46-116); ANION GAP 3 (8-16); ASPARTATE AMINO TRANSFERASE 19 U/L (10-37); BILIRUBIN,TOTAL 2.4 MG/DL (0.1-1.0); BLOOD UREA NITROGEN 8 MG/DL (7-18); BUN/CREATININE RATIO 15.1 (5.4-32.0); CALCIUM 8.4 MG/DL (8.5-10.1); CHLORIDE 94 MMOL/L (99-107); CREATININE 0.53 MG/DL (0.60-1.10); GLUCOSE 246 MG/DL (70-104); POTASSIUM 4.5 MMOL/L (3.5-5.1); SODIUM 129 MMOL/L (135-145); TOTAL CARBON DIOXIDE 31.6 MMOL/L (24-32); TOTAL PROTEIN 7.9 G/DL (6.4-8.2); eGFR > 90 ML/MIN
[2021-11-25 11:21] LABS: LIPASE 56 U/L (73-393)
--- NOTE | 2021-11-25 12:00 | NUR ---
RT paged for breathing tx DEANNE.
--- NOTE | 2021-11-25 12:03 | NUR ---
Talked with CT. Cannot infuse through a port, will come and check 22g IV in pt's right wrist.
--- NOTE | 2021-11-25 12:04 | NUR ---
Pt concerned that if he's here too long he will lose his bed at [facility]. Attempting to accelerate things here for him.
[2021-11-25] MEDS ORDERED: iohexol 300 MG/1 ML 50ml polymer ONE (12:33)
--- NOTE | 2021-11-25 13:16 | NUR ---
Noticed sclera of pt's eyes are jaundiced.
--- NOTE | 2021-11-25 14:13 | NUR ---
Pt requesting pain medication. at bedside. Still awaiting CT report.
[2021-11-25 14:26] LABS: CLARITY,URINE CLOUDY (Clear); COLOR,URINE YELLOW (Yellow); GLUCOSE, URINE 100 mg/dl (Neg); KETONES,URINE NEGATIVE (Neg); LEUKOCYTE ESTERASE ,URINE NEGATIVE (Neg); NITRITES, URINE NEGATIVE (Neg); OCCULT BLOOD,URINE NEGATIVE (Neg); PH,URINE 6.5 (4.8-8.0); PROTEIN,URINE NEGATIVE (Neg); UROBILINOGEN,URINE 0.2 E.U/dL (0.2-1.0)
[2021-11-25 14:29] LABS: UA COLLECTION TYPE NON-SPECIFIED
[2021-11-25 14:32] LABS: SQUAMOUS EPITHELIAL CELL,UR FEW /LPF (FEW)
[2021-11-25 14:33] LABS: BACTERIA,URINE FEW /HPF (Neg); RBC,URINE 0-2 /HPF (0-2); WBC,URINE 0-4 /HPF (0-4)
[2021-11-25 14:34] LABS: AMORPHOUS PHOSPHATES 1+
[2021-11-25 16:30] VITALS: BP 108/61
--- NOTE | 2021-11-25 16:42 | NUR ---
Provided pt's food. Pt asking for more pain medication. Pain 8/10 and on a JACK TAMP OPERATOR pump at [facility]. Will ask MD for Dilaudid Q1-2hr for pain.
== END 2021-11-25 19:44 | disposition home or self-care (01) ==
LOC: ER 09:20
DX: K63.2 Fistula of intestine (principal); I10 Essential (primary) hypertension; J45.909 Unspecified asthma, uncomplicated; D64.9 Anemia, unspecified; E11.9 Type 2 diabetes mellitus without complications; F41.9 Anxiety disorder, unspecified; Z88.0 Allergy status to penicillin; Z88.1 Allergy status to other antibiotic agents; Z79.899 Other long term (current) drug therapy
CPT/HCPCS: 36415; 74177; 80053; 81001; 83690; 84484; 85025; 94640; 96365; 96376; 99285; J1170; Q9967; 94760

== ENCOUNTER 2022-01-29 13:01 | Outpatient (CLI) | payer OTHER ==
[2022-01-29] MEDS ORDERED: iohexol 300mg/ml 100ml inj. ONE (13:18)
== END 2022-01-29 23:59 | disposition home or self-care (01) ==
LOC: RAD 13:01
PROVIDERS: ATTEND Specialist
DX: K80.20 Calculus of gallbladder without cholecystitis without obstruction (principal); J90 Pleural effusion, not elsewhere classified; N40.0 Benign prostatic hyperplasia without lower urinary tract symptoms; Z93.3 Colostomy status; Z93.1 Gastrostomy status
CPT/HCPCS: 74177; J3490; Q9967

== ENCOUNTER 2022-02-18 15:39 | Outpatient (CLI) | payer MEDICAID | END 2022-02-18 23:59 | disposition home or self-care (01) | LOC: CARD DIAG 15:39 | PROVIDERS: ATTEND Specialist | DX: Z01.810 Encounter for preprocedural cardiovascular examination (principal); I05.8 Other rheumatic mitral valve diseases | CPT/HCPCS: 93308 ==

== ENCOUNTER 2022-03-09 08:14 | Inpatient (IN) | payer MEDICAID ==
[~2022-03-09] VITALS: Ht 170.2 cm; Wt 97.3 kg
--- NOTE | 2022-03-09 14:15 | NUR ---
Patient arrived to the floor. No complaints. t/c to dr. Joe who asked that I page the hospitalist service for this admission.
--- NOTE | 2022-03-09 14:20 | NUR ---
PAGER ID: [phone] MESSAGE: [phone] Michael Mcleod: Direct admit from [facility]. Needs to be admitted. thanks! -sherrill [email or web address] Addendum: 03/09/22 at 1535 by Sherrill Hauser RN 1500: Spoke with Dr. Arnett who will be taking this admission
[2022-03-09] MEDS ORDERED: HYDROcodone/acetaminophen 5mg/325mg tablet PO PRN (16:05)
[2022-03-09] MEDS ORDERED: magnesium Cl slow-release 64mg tablet PO PRN (16:05)
[2022-03-09] MEDS ORDERED: HYDROmorphone inj. 0.5 MG/0.5 ML DISP.SYRIN IV PRN (16:05)
[2022-03-09] MEDS ORDERED: HYDROmorphone/PF 0.2 MG/ML SYRINGE IV PRN (16:05)
[2022-03-09] MEDS ORDERED: acetaminophen 325mg tablet PO PRN ×2 (16:05)
[2022-03-09] MEDS ORDERED: magnesium 4gm in 100ml NS 100 ML IV PRN (16:05)
[2022-03-09] MEDS ORDERED: HYDROcodone/acetaminophen 10/325mg tab PO PRN (16:05)
[2022-03-09] MEDS ORDERED: magnesium 2GM in 50ml NS 50 ML IV PRN (16:05)
[2022-03-09] MEDS ORDERED: potassium CL 10mEq/100ml bag 100 ML IV PRN (16:05)
[2022-03-09] MEDS ORDERED: POTASSIUM BICARB 20meq eff tab 20 MEQ TABLET.EFF PO PRN ×2 (16:05)
[2022-03-09] MEDS ORDERED: morphine 2 MG/ML inj. syringe IV PRN ×2 (16:05)
[2022-03-09] MEDS ORDERED: MESSAGE TO PHARMACY PO ONE (16:15)
[2022-03-09] MEDS ORDERED: glucagon, human recombinant 1mg kit SUBCUT PRN (16:15)
[2022-03-09] MEDS ORDERED: DEXTROSE 15 GM of carb/4 tabs (each vial/BOTTLE has 4 tablets) PO PRN ×2 (16:15)
[2022-03-09] MEDS ORDERED: dextrose 50%-water 50ml dispensing syringe IV PRN ×2 (16:15)
--- NOTE | 2022-03-09 16:15 | NUR ---
Page sent to fadi LOPES.... [id number] Jose Guadalupe Mcleod: direct admit that needs to be darted. thanks!
[2022-03-09] MEDS: piperacillin/tazo 3.375gm/50ml 50 ML IV SCH ×2 (17:03→23:13)
[2022-03-09] MEDS: normal saline 1000ml 1,000 ML IV SCH (17:03)
[2022-03-09 17:18] LABS: BASOPHILS % (AUTO) 0.9 % (0-1); EOSINOPHILS # (AUTO) 0.4 X10'3 (0-0.9); EOSINOPHILS % (AUTO) 7.4 % (0-6); HEMATOCRIT 35.5 % (42.0-52.0); HEMOGLOBIN 11.7 g/dl (14.0-17.9); LYMPHOCYTES # (AUTO) 1.6 X10'3 (1.1-4.8); LYMPHOCYTES % (AUTO) 33.2 % (21-51); MEAN CORPUSCULAR HEMOGLOBIN 28.6 PG (27.0-31.0); MEAN CORPUSCULAR VOLUME 86.7 FL (78-98); MEAN PLATELET VOLUME 8.5 FL (7.4-10.4); MONOCYTES # (AUTO) 0.5 X10'3 (0-0.9); MONOCYTES % (AUTO) 9.3 % (2-12); NEUTROPHILS # (AUTO) 2.4 X10'3 (1.8-7.7); NEUTROPHILS % (AUTO) 49.2 % (42-75); PLATELET COUNT 198 X10'3 (140-440); RED CELL DISTRIBUTION WIDTH 14.6 % (11.5-14.5); WHITE BLOOD COUNT 4.9 X10'3 (4.5-11.0)
[2022-03-09 17:21] LABS: APTT 26 SECONDS (22-32)
[2022-03-09 17:23] LABS: ALANINE AMINOTRANSFERASE 9 U/L (12-78); ALBUMIN 2.7 G/DL (3.4-5.0); ALBUMIN/GLOBULIN RATIO 0.5 (1.1-1.5); ALKALINE PHOSPHATASE 116 IU/L (46-116); ANION GAP 6 (8-16); ASPARTATE AMINO TRANSFERASE 10 U/L (10-37); BILIRUBIN,TOTAL 0.5 MG/DL (0.1-1.0); BLOOD UREA NITROGEN 25 MG/DL (7-18); BUN/CREATININE RATIO 42.4 (5.4-32.0); CHLORIDE 101 MMOL/L (99-107); CREATININE 0.59 MG/DL (0.60-1.10); GLUCOSE 139 MG/DL (70-104); POTASSIUM 4.1 MMOL/L (3.5-5.1); SODIUM 134 MMOL/L (135-145); TOTAL CARBON DIOXIDE 27.1 MMOL/L (24-32); TOTAL PROTEIN 7.8 G/DL (6.4-8.2); eGFR > 90 ML/MIN
[2022-03-09 17:38] LABS: HEMOGLOBIN A1C 6.5 % (4.5-6.2)
[2022-03-09] MEDS ORDERED: LORazepam 1 MG tablet PO PRN (17:45)
--- NOTE | 2022-03-09 17:45 | NUR ---
Page sent to RT... [id number] Jose Guadalupe Mcleod: ..patient has a new PRN RT treatment. He does not need it at the moment. thanks! Addendum: 03/09/22 at 1745 by Sherrill Hauser RN Amended: Links added.
[2022-03-09 18:00] VITALS: BP 111/69
[2022-03-09] MEDS: albuterol 2.5 MG/3 ML nebule NEB PRN (18:07)
--- NOTE | 2022-03-09 18:30 | NUR ---
Patient in room ORTHO 4012. I have received report from Whit LOPES and had the opportunity to ask questions and assume patient care.
--- NOTE | 2022-03-09 18:31 | NUR ---
Problems reprioritized. Patient report given, questions answered & plan of care reviewed with MOSES Spring.
[2022-03-09] MEDS ORDERED: PEG 3350/Na sulf,bicarb,Cl/KCl oral sol 4 liter bottle PO ONE (19:35)
[2022-03-09] MEDS ORDERED: FENT1PAT13 TOP (19:39)
[2022-03-09] MEDS ORDERED: [UNRECOGNIZED DRUG - CODE] IV (19:39)
[2022-03-09] MEDS ORDERED: ENOX40SY7 SUBCUT (19:39)
[2022-03-09] MEDS ORDERED: ALBU2.5V12 NEB (19:39)
[2022-03-09] MEDS ORDERED: FORM20VI IH (19:39)
[2022-03-09] MEDS ORDERED: [UNRECOGNIZED DRUG - CODE] (19:39)
[2022-03-09] MEDS ORDERED: HYDR1LIQ3 IV ×2 (19:39)
[2022-03-09] MEDS ORDERED: LORA-269 PO (19:39)
[2022-03-09] MEDS ORDERED: INSU100V5 IJ (19:39)
[2022-03-09] MEDS ORDERED: PANT-47 IVP (19:39)
[2022-03-09] MEDS: K and/or MAG REPLACEMENT MC SCH (20:00)
[2022-03-09] MEDS: heparin, porcine 5000 units/ml vial SQ SCH (20:00)
[2022-03-09] MEDS: insulin glargine (Lantus) pen - multi-dose SQ SCH (21:00)
[2022-03-09] MEDS ORDERED: temazepam 15mg capsule PO PRN (21:00)
[2022-03-09 22:00] VITALS: BP 110/67
[2022-03-09] MEDS: HYDROmorphone 1 mg/ml syringe IV PRN (22:09)
[2022-03-10] VITALS (28 sets, daily range): BP systolic 91–133; BP diastolic 53–83
[2022-03-10] MEDS: HYDROmorphone 1 mg/ml syringe IV PRN ×2 (02:21→07:06)
[2022-03-10] MEDS: ondansetron/PF 4mg/2ml inj IV PRN (03:04)
[2022-03-10] MEDS: albuterol 2.5 MG/3 ML nebule NEB PRN (04:21)
--- NOTE | 2022-03-10 05:48 | NUR ---
Have been encouraging patient to drink go-lytely all night long! Patient keeps stating that he can't drink it all as he has been NPO for months and feels stuffed. He then went on to say that he did not want to throw up from it. Gave zofran . Patient still making excuses for not drinking it all. Have only emptied less than a teaspoon of liquid brown stool from colostomy. 1800cc thus far from fistula draining.
[2022-03-10 06:07] LABS: BASOPHILS % (AUTO) 0.7 % (0-1); EOSINOPHILS # (AUTO) 0.3 X10'3 (0-0.9); EOSINOPHILS % (AUTO) 7.2 % (0-6); HEMATOCRIT 33.8 % (42.0-52.0); HEMOGLOBIN 11.4 g/dl (14.0-17.9); LYMPHOCYTES # (AUTO) 0.9 X10'3 (1.1-4.8); MEAN CORPUSCULAR HEMOGLOBIN 29.1 PG (27.0-31.0); MEAN CORPUSCULAR HGB CONC 33.8 g/dL (33.0-36.5); MEAN CORPUSCULAR VOLUME 86.2 FL (78-98); MEAN PLATELET VOLUME 8.5 FL (7.4-10.4); MONOCYTES # (AUTO) 0.4 X10'3 (0-0.9); MONOCYTES % (AUTO) 10.1 % (2-12); NEUTROPHILS # (AUTO) 2.3 X10'3 (1.8-7.7); PLATELET COUNT 191 X10'3 (140-440); RED BLOOD COUNT 3.92 X10'6 (4.70-6.10); RED CELL DISTRIBUTION WIDTH 14.3 % (11.5-14.5); WHITE BLOOD COUNT 3.9 X10'3 (4.5-11.0)
[2022-03-10 06:14] LABS: ALANINE AMINOTRANSFERASE 12 U/L (12-78); ALBUMIN 2.6 G/DL (3.4-5.0); ALBUMIN/GLOBULIN RATIO 0.5 (1.1-1.5); ALKALINE PHOSPHATASE 117 IU/L (46-116); ANION GAP 5 (8-16); ASPARTATE AMINO TRANSFERASE 12 U/L (10-37); BILIRUBIN,TOTAL 0.6 MG/DL (0.1-1.0); BLOOD UREA NITROGEN 16 MG/DL (7-18); BUN/CREATININE RATIO 24.6 (5.4-32.0); CALCIUM 9.6 MG/DL (8.5-10.1); CHLORIDE 100 MMOL/L (99-107); CREATININE 0.65 MG/DL (0.60-1.10); GLUCOSE 159 MG/DL (70-104); POTASSIUM 3.8 MMOL/L (3.5-5.1); SODIUM 135 MMOL/L (135-145); TOTAL CARBON DIOXIDE 29.9 MMOL/L (24-32); TOTAL PROTEIN 7.4 G/DL (6.4-8.2); eGFR > 90 ML/MIN
--- NOTE | 2022-03-10 06:15 | NUR ---
Problems reprioritized. Patient report given, questions answered & plan of care reviewed with Whit LOPES.
[2022-03-10] MEDS: normal saline 1000ml 1,000 ML IV SCH ×3 (06:23→23:20)
[2022-03-10 06:41] LABS: CLARITY,URINE CLEAR (Clear); COLOR,URINE YELLOW (Yellow); GLUCOSE, URINE NEGATIVE (Neg); KETONES,URINE NEGATIVE (Neg); LEUKOCYTE ESTERASE ,URINE NEGATIVE (Neg); NITRITES, URINE NEGATIVE (Neg); OCCULT BLOOD,URINE NEGATIVE (Neg); PROTEIN,URINE NEGATIVE (Neg); UROBILINOGEN,URINE 0.2 E.U/dL (0.2-1.0)
[2022-03-10] MEDS ORDERED: iohexol 300 MG/1 ML 10ml vial ONE (06:46)
[2022-03-10 06:48] LABS: UA COLLECTION TYPE NON-SPECIFIED
[2022-03-10] MEDS ORDERED: labetalol 20mg/4ml (5mg/ml) syringe IV PRN (07:00)
[2022-03-10] MEDS ORDERED: hydrALAZINE 20mg/ml inj. IV PRN (07:00)
[2022-03-10] MEDS ORDERED: ringers solution, lacted 1,000 ML IV SCH (07:00)
[2022-03-10] MEDS ORDERED: ondansetron/PF 4mg/2ml inj IV PRN (07:00)
[2022-03-10] MEDS ORDERED: fentaNYL/PF 50MCG/1 ML 2ML syringe IV PRN (07:00)
[2022-03-10] MEDS ORDERED: morphine 2 MG/ML inj. syringe IV PRN (07:00)
[2022-03-10] MEDS: K and/or MAG REPLACEMENT MC SCH ×2 (07:13→19:40)
[2022-03-10] MEDS: heparin, porcine 5000 units/ml vial SQ SCH ×2 (07:13→19:40)
--- NOTE | 2022-03-10 07:20 | NUR ---
Report called to MOSES Marroquin in recovery. Patient picked up for surgery at 0710.
[2022-03-10] MEDS: piperacillin/tazo 3.375gm/50ml 50 ML IV SCH ×2 (08:00→15:59)
--- NOTE | 2022-03-10 12:43 | NUR ---
Received from OR via HOSPITAL BED, accompanied by Anesthesiologist DR GRIER and report given by Anesthesiolgist. PT PRESNTS WITH PORT IN UPPER RIGHT CHEST WITH SCANT BLOOD MISSING ABBASI NEEDLE. 2X2 PLACED WITH TEGADERM, OR NORTIFIED AND AWARE. PT HAS EXTEDED PIV LEFT UPPER ARM, HURLEY CATHETER, ABD DRERSING CLEAN DRY AND INTACT, STOMA IS PINK WITH COLOSTOMY BAG WITH LIGHT PINK DRAINAGE. VSS. Addendum: 03/10/22 at 1313 by Debby Beltran RN, RN Amended: Links added.
[2022-03-10] MEDS ORDERED: HYDROmorph/NS 0.2 mg/ml PCA 100 ML IV SCH (12:50)
[2022-03-10] MEDS ORDERED: naloxone 0.4 mg/ml inj IV PRN (12:50)
[2022-03-10] MEDS: morphine 4 MG/ML inj SYRINge IV PRN ×2 (12:55→13:14)
[2022-03-10] MEDS: fentaNYL/PF 50MCG/1 ML 2ML syringe IV PRN ×2 (13:19→14:01)
--- NOTE | 2022-03-10 14:17 | NUR ---
Patient transferring to ICU. Called to give report to receiving nurse. Was told she will call back if she has any additional questions.
[2022-03-10] MEDS: HYDROmorph/NS 0.2 mg/ml PCA 100 ML IV SCH ×5 (14:23→23:00)
--- NOTE | 2022-03-10 14:43 | NUR ---
Report called to receiving nurse JAMES LOPES. Transferred via HOSPITAL BED ON TELE TO ROOM 2042 WHERE GIULIANO LOPES WAS AT BEDSIDE. BED IN LOW LOCKED POSITION, PT HOOKED P TO ICE MONITOR. Belongings WERE IN PT PREVIOUS ROOM. Special Issues communicated to receiving nurse. Addendum: 03/10/22 at 1510 by Debby Beltran RN RN Amended: Links added.
--- NOTE | 2022-03-10 14:50 | NUR ---
Received patient from PACU accompanied by RN's. Patient drowsy but awakens easily and oriented. C/O abdominal pain. Reminded to push CASHIER WRAPPER button. Patient pale. ST. Bp good. Lungs clear on 2l n/c with sats 100%. F/C patient with few blood clots and blood tinge to urine. Abdominal dressing dry & intact. Ileostomy stoma pink with scant amount serosanguinous drainage.
[2022-03-10 15:59] LABS: BASOPHILS % (AUTO) 0.1 % (0-1); EOSINOPHILS % (AUTO) 0.1 % (0-6); HEMATOCRIT 26.1 % (42.0-52.0); HEMOGLOBIN 8.7 g/dl (14.0-17.9); LYMPHOCYTES # (AUTO) 0.2 X10'3 (1.1-4.8); LYMPHOCYTES % (AUTO) 2.1 % (21-51); MEAN CORPUSCULAR HEMOGLOBIN 28.6 PG (27.0-31.0); MEAN CORPUSCULAR HGB CONC 33.2 g/dL (33.0-36.5); MEAN CORPUSCULAR VOLUME 86.1 FL (78-98); MONOCYTES # (AUTO) 0.8 X10'3 (0-0.9); MONOCYTES % (AUTO) 7.1 % (2-12); NEUTROPHILS # (AUTO) 10.2 X10'3 (1.8-7.7); NEUTROPHILS % (AUTO) 90.6 % (42-75); PLATELET COUNT 194 X10'3 (140-440); RED BLOOD COUNT 3.03 X10'6 (4.70-6.10); RED CELL DISTRIBUTION WIDTH 14.6 % (11.5-14.5); WHITE BLOOD COUNT 11.3 X10'3 (4.5-11.0)
[2022-03-10 16:10] LABS: ANION GAP 7 (8-16); BLOOD UREA NITROGEN 14 MG/DL (7-18); BUN/CREATININE RATIO 16.9 (5.4-32.0); CALCIUM 8.6 MG/DL (8.5-10.1); CHLORIDE 102 MMOL/L (99-107); CREATININE 0.83 MG/DL (0.60-1.10); GLUCOSE 299 MG/DL (70-104); MAGNESIUM 1.3 MG/DL (1.5-2.4); PHOSPHORUS 5.8 MG/DL (2.3-4.5); POTASSIUM 4.7 MMOL/L (3.5-5.1); SODIUM 136 MMOL/L (135-145); TOTAL CARBON DIOXIDE 27.2 MMOL/L (24-32); eGFR > 90 ML/MIN
[2022-03-10] MEDS: insulin Lispro (HumaLOG) vial - multi-dose SQ SCH (16:27)
--- NOTE | 2022-03-10 18:12 | NUR ---
Problems reprioritized. Patient report given, questions answered & plan of care reviewed with Debby LOPES.
[2022-03-10] MEDS: insulin glargine (Lantus) pen - multi-dose SQ SCH (21:15)
[2022-03-10] MEDS ORDERED: albumin (Human) 5% 250ml 250 ML IV ONE ×2 (22:05)
--- NOTE | 2022-03-10 22:42 | NUR ---
Dr. Joe notified via phone of concern for pt HR sustained 120s and SBP 90-100s. Hgb drop from ~ 11 to 8 post op. Order to transfuse 2 units PRBC and 500cc 5% albumin STAT. Recheck H&H post both units of blood.
[2022-03-11] VITALS (28 sets, daily range): BP systolic 88–123; BP diastolic 41–69
[2022-03-11] MEDS: HYDROmorph/NS 0.2 mg/ml PCA 100 ML IV SCH ×11 (01:00→23:00)
[2022-03-11] MEDS: piperacillin/tazo 3.375gm/50ml 50 ML IV SCH ×4 (01:22→23:24)
[2022-03-11] MEDS: insulin Lispro (HumaLOG) vial - multi-dose SQ SCH ×3 (03:20→14:43)
[2022-03-11] MEDS: albuterol 2.5 MG/3 ML nebule NEB PRN (03:58)
[2022-03-11] MEDS: LORazepam 2 mg/ml vial IV PRN ×2 (04:07→14:07)
[2022-03-11] MEDS: normal saline 1000ml 1,000 ML IV SCH ×2 (04:57→15:09)
[2022-03-11 05:57] LABS: BASOPHILS % (AUTO) 0.2 % (0-1); EOSINOPHILS % (AUTO) 0.2 % (0-6); HEMATOCRIT 29.2 % (42.0-52.0); HEMOGLOBIN 10.2 g/dl (14.0-17.9); LYMPHOCYTES % (AUTO) 10.5 % (21-51); MEAN CORPUSCULAR HEMOGLOBIN 29.8 PG (27.0-31.0); MEAN CORPUSCULAR VOLUME 85.2 FL (78-98); MEAN PLATELET VOLUME 8.7 FL (7.4-10.4); MONOCYTES # (AUTO) 0.9 X10'3 (0-0.9); MONOCYTES % (AUTO) 9.9 % (2-12); NEUTROPHILS # (AUTO) 7.3 X10'3 (1.8-7.7); NEUTROPHILS % (AUTO) 79.2 % (42-75); PLATELET COUNT 184 X10'3 (140-440); RED BLOOD COUNT 3.42 X10'6 (4.70-6.10); RED CELL DISTRIBUTION WIDTH 14.2 % (11.5-14.5); WHITE BLOOD COUNT 9.2 X10'3 (4.5-11.0)
[2022-03-11 06:10] LABS: ALANINE AMINOTRANSFERASE 15 U/L (12-78); ALKALINE PHOSPHATASE 56 IU/L (46-116); ANION GAP 7 (8-16); ASPARTATE AMINO TRANSFERASE 19 U/L (10-37); BILIRUBIN,TOTAL 2.6 MG/DL (0.1-1.0); BLOOD UREA NITROGEN 10 MG/DL (7-18); BUN/CREATININE RATIO 19.2 (5.4-32.0); CHLORIDE 106 MMOL/L (99-107); CREATININE 0.52 MG/DL (0.60-1.10); GLUCOSE 184 MG/DL (70-104); POTASSIUM 4.1 MMOL/L (3.5-5.1); SODIUM 141 MMOL/L (135-145); TOTAL CARBON DIOXIDE 28.5 MMOL/L (24-32); TOTAL PROTEIN 5.9 G/DL (6.4-8.2); eGFR > 90 ML/MIN
[2022-03-11] MEDS: heparin, porcine 5000 units/ml vial SQ SCH ×2 (08:16→20:08)
[2022-03-11] MEDS ORDERED: ringers solution, lacted 1,000 ML IV STA (08:57)
[2022-03-11] MEDS ORDERED: acetaminophen 1,000mg/100ml IV 100 ML IV ONE (13:18)
[2022-03-11] MEDS ORDERED: albumin (Human) 5% 250ml 250 ML IV ONE ×2 (16:15)
--- NOTE | 2022-03-11 16:15 | NUR ---
PRESSURE ULCER EDUCATION: DEFINITION: A pressure ulcer is an area of skin that breaks down when you stay in one position too long. The constant pressure against the skin reduces the blood flow to that area and the affected tissue dies. CAUSES: "Being bedridden or in a wheelchair "Fragile skin "Having a chronic condition, such as diabetes or vascular disease "Inability to move certain parts of your body without assistance "Older age "Incontinence of urine or stool SYMPTOMS: "A reddened area that DOES NOT turn white when pressed on - this can be the beginning of a pressure ulcer "A blister, deep sore or a crater - these can be advanced pressure ulcers FIRST AID: "Relieve the pressure on this area "Keep the area clean and dry "Call your primary doctor if you see any of the above symptoms "DO NOT massage the area "DO NOT use a donut shaped or ring shaped pillow- these actually interfere with the blood flow and cause complications PREVENTION: "Check for pressure ulcers everyday "Change position at least every two hours to relieve pressure "Use items that help relieve pressure- pillows, sheepskin, foam padding, and powders. "Keep skin clean and dry "Eat healthy well balanced meals "Exercise daily IF YOU SEE ANY OF THESE SYMPTOMS WHILE IN THE HOSPITAL - TELL YOUR NURSE IMMEDIATELY. IF YOU SEE ANY OF THESE SYMPTOMS WHILE AT HOME OR HAVE ANY QUESTIONS OR CONCERNS ABOUT PRESSURE ULCERS - CALL YOUR PRIMARY DOCTOR IMMEDIATELY. Addendum: 03/11/22 at 1616 by Florina Eddy LVN Amended: Links added.
[2022-03-11] MEDS: K and/or MAG REPLACEMENT MC SCH (20:00)
[2022-03-11] MEDS: insulin glargine (Lantus) pen - multi-dose SQ SCH (20:13)
[2022-03-12] VITALS (15 sets, daily range): BP systolic 91–135; BP diastolic 51–71
[2022-03-12] MEDS: HYDROmorph/NS 0.2 mg/ml PCA 100 ML IV SCH ×6 (01:00→11:00)
[2022-03-12] MEDS: LORazepam 2 mg/ml vial IV PRN (01:12)
[2022-03-12 03:10] LABS: BASOPHILS % (AUTO) 0.5 % (0-1); EOSINOPHILS # (AUTO) 0.1 X10'3 (0-0.9); EOSINOPHILS % (AUTO) 1.3 % (0-6); HEMATOCRIT 24.7 % (42.0-52.0); HEMOGLOBIN 8.5 g/dl (14.0-17.9); LYMPHOCYTES # (AUTO) 0.8 X10'3 (1.1-4.8); LYMPHOCYTES % (AUTO) 12.8 % (21-51); MEAN CORPUSCULAR HEMOGLOBIN 29.9 PG (27.0-31.0); MEAN CORPUSCULAR HGB CONC 34.3 g/dL (33.0-36.5); MEAN CORPUSCULAR VOLUME 87.3 FL (78-98); MEAN PLATELET VOLUME 8.9 FL (7.4-10.4); MONOCYTES # (AUTO) 0.5 X10'3 (0-0.9); MONOCYTES % (AUTO) 7.7 % (2-12); NEUTROPHILS # (AUTO) 5.1 X10'3 (1.8-7.7); NEUTROPHILS % (AUTO) 77.7 % (42-75); PLATELET COUNT 129 X10'3 (140-440); RED BLOOD COUNT 2.83 X10'6 (4.70-6.10); WHITE BLOOD COUNT 6.6 X10'3 (4.5-11.0)
[2022-03-12 03:22] LABS: ALANINE AMINOTRANSFERASE 11 U/L (12-78); ALBUMIN 2.4 G/DL (3.4-5.0); ALBUMIN/GLOBULIN RATIO 0.8 (1.1-1.5); ALKALINE PHOSPHATASE 51 IU/L (46-116); ANION GAP 4 (8-16); ASPARTATE AMINO TRANSFERASE 17 U/L (10-37); BILIRUBIN,TOTAL 3.1 MG/DL (0.1-1.0); BLOOD UREA NITROGEN 7 MG/DL (7-18); BUN/CREATININE RATIO 16.7 (5.4-32.0); CALCIUM 7.8 MG/DL (8.5-10.1); CHLORIDE 108 MMOL/L (99-107); CREATININE 0.42 MG/DL (0.60-1.10); GLUCOSE 106 MG/DL (70-104); SODIUM 140 MMOL/L (135-145); TOTAL CARBON DIOXIDE 28.1 MMOL/L (24-32); TOTAL PROTEIN 5.3 G/DL (6.4-8.2); eGFR > 90 ML/MIN
[2022-03-12 03:28] LABS: POTASSIUM 3.6 MMOL/L (3.5-5.1)
--- NOTE | 2022-03-12 07:00 | NUR ---
1819 Report given to this RN from MOSES Sigala. Dilaudid PLASTER MAKER at 0.3mg per push. Pt had uneventful overnight houseperson. He got x1 dose of ativan before his bath. Pt rates pain at 9/10 but falls asleep quickly after care. At times pt is quite sleepy and appears to be in no pain. IS up to 500 with minimal effort. Dressing intact. Scant output from ileostomy. 624 Report given to Mariah. Dilaudid preparation room manager verified. Questions answered. Pt in no acute distress at time of handoff.
[2022-03-12] MEDS: K and/or MAG REPLACEMENT MC SCH ×2 (08:00→20:00)
[2022-03-12] MEDS: albuterol 2.5 MG/3 ML nebule NEB PRN (08:49)
[2022-03-12] MEDS: heparin, porcine 5000 units/ml vial SQ SCH (09:42)
[2022-03-12] MEDS: normal saline 1000ml 1,000 ML IV SCH ×2 (09:43→21:33)
[2022-03-12] MEDS ORDERED: LORazepam 1 MG tablet PO PRN (11:20)
[2022-03-12] MEDS ORDERED: [UNRECOGNIZED DRUG - OTHER] IV SCH (11:20)
[2022-03-12] MEDS ORDERED: LIPID EMULSION IV SCH (11:20)
[2022-03-12] MEDS ORDERED: albuterol 2.5 MG/3 ML nebule NEB PRN (11:20)
[2022-03-12] MEDS: piperacillin/tazo 3.375gm/50ml 50 ML IV SCH ×3 (12:00→23:32)
--- NOTE | 2022-03-12 12:27 | NUR ---
Removed and wasted fentaly patched applied at [facility] at 1227 with charge nurse. Paper documentation sent to pharmacy.
[2022-03-12] MEDS: fentaNYL 100MCG/hour patch.TD72 TD SCH (12:28)
[2022-03-12] MEDS: HYDROmorphone 1 mg/ml syringe IV PRN ×3 (14:14→23:29)
[2022-03-12] MEDS ORDERED: PCA WASTE DOCUMENTATION MC SCH (17:00)
--- NOTE | 2022-03-12 19:12 | NUR ---
Abd dressing changed over wound.
--- NOTE | 2022-03-12 19:12 | NUR ---
Problems reprioritized. Patient report given, questions answered & plan of care reviewed with MOSES Kahn.
--- NOTE | 2022-03-12 19:20 | NUR ---
Patient in room PCU 3018. I have received bedside report from MOSES Lemus and had the opportunity to ask questions and assume patient care.
[2022-03-12] MEDS ORDERED: enoxaparin 40mg/0.4ml syringe SUBCUT SCH (20:00)
[2022-03-12] MEDS: insulin glargine (Lantus) pen - multi-dose SQ SCH (21:00)
[2022-03-12] MEDS ORDERED: diazepam inj 5 MG/ML inj. IV PRN (22:25)
[2022-03-12] MEDS: diazepam inj 5 MG/ML inj. IV PRN (22:55)
[2022-03-12] MEDS: albuterol 2.5 MG/3 ML nebule NEB SCH (23:00)
[2022-03-13] MEDS: albuterol 2.5 MG/3 ML nebule NEB SCH ×5 (01:57→23:26)
[2022-03-13 02:00] VITALS: BP 113/67
[2022-03-13] MEDS: HYDROmorphone 1 mg/ml syringe IV PRN ×6 (05:03→23:55)
[2022-03-13 06:00] VITALS: BP 133/68
--- NOTE | 2022-03-13 06:23 | NUR ---
Problems reprioritized. Patient report given, questions answered & plan of care reviewed with Florina Porter RN.
[2022-03-13 07:44] LABS: BASOPHILS % (AUTO) 0.3 % (0-1); EOSINOPHILS # (AUTO) 0.1 X10'3 (0-0.9); EOSINOPHILS % (AUTO) 2.3 % (0-6); HEMATOCRIT 24.7 % (42.0-52.0); HEMOGLOBIN 8.3 g/dl (14.0-17.9); LYMPHOCYTES # (AUTO) 0.8 X10'3 (1.1-4.8); LYMPHOCYTES % (AUTO) 17.1 % (21-51); MEAN CORPUSCULAR HEMOGLOBIN 29.7 PG (27.0-31.0); MEAN CORPUSCULAR HGB CONC 33.7 g/dL (33.0-36.5); MEAN PLATELET VOLUME 8.3 FL (7.4-10.4); MONOCYTES # (AUTO) 0.3 X10'3 (0-0.9); MONOCYTES % (AUTO) 6.5 % (2-12); NEUTROPHILS # (AUTO) 3.6 X10'3 (1.8-7.7); NEUTROPHILS % (AUTO) 73.8 % (42-75); PLATELET COUNT 158 X10'3 (140-440); RED BLOOD COUNT 2.81 X10'6 (4.70-6.10); RED CELL DISTRIBUTION WIDTH 14.4 % (11.5-14.5); WHITE BLOOD COUNT 4.8 X10'3 (4.5-11.0)
[2022-03-13 08:00] LABS: ALANINE AMINOTRANSFERASE 16 U/L (12-78); ALBUMIN 2.2 G/DL (3.4-5.0); ALBUMIN/GLOBULIN RATIO 0.6 (1.1-1.5); ALKALINE PHOSPHATASE 67 IU/L (46-116); ANION GAP 9 (8-16); ASPARTATE AMINO TRANSFERASE 17 U/L (10-37); BILIRUBIN,TOTAL 2.5 MG/DL (0.1-1.0); BLOOD UREA NITROGEN 5 MG/DL (7-18); BUN/CREATININE RATIO 11.9 (5.4-32.0); CHLORIDE 108 MMOL/L (99-107); CREATININE 0.42 MG/DL (0.60-1.10); GLUCOSE 93 MG/DL (70-104); POTASSIUM 3.3 MMOL/L (3.5-5.1); SODIUM 143 MMOL/L (135-145); TOTAL CARBON DIOXIDE 25.6 MMOL/L (24-32); TOTAL PROTEIN 5.6 G/DL (6.4-8.2); eGFR > 90 ML/MIN
[2022-03-13] MEDS: K and/or MAG REPLACEMENT MC SCH ×2 (08:00→19:20)
[2022-03-13] MEDS ORDERED: enoxaparin 40mg/0.4ml syringe SUBCUT SCH (08:00)
[2022-03-13] MEDS: pantoprazole 40mg Tablet.DR PO SCH ×2 (08:00→08:47)
[2022-03-13] MEDS ORDERED: POTASSIUM BICARB 20meq eff tab 20 MEQ TABLET.EFF PO PRN ×2 (08:40)
[2022-03-13] MEDS ORDERED: magnesium Cl slow-release 64mg tablet PO PRN (08:40)
[2022-03-13] MEDS ORDERED: magnesium 4gm in 100ml NS 100 ML IV PRN (08:40)
[2022-03-13] MEDS ORDERED: magnesium 2GM in 50ml NS 50 ML IV PRN (08:40)
[2022-03-13] MEDS: normal saline 1000ml 1,000 ML IV SCH ×3 (08:49→20:07)
[2022-03-13 09:01] LABS: MAGNESIUM 1.7 MG/DL (1.5-2.4)
[2022-03-13] MEDS ORDERED: pantoprazole 40MG/NS 100ML BAG 100 ML IV ONE (09:15)
[2022-03-13] MEDS: potassium CL 10mEq/100ml bag 100 ML IV PRN ×4 (09:17→23:55)
--- NOTE | 2022-03-13 09:50 | NUR ---
Initial: Pt admitted w/ diverticulitis, s/p ex lap w/ lysis of adhesions, G-tube closure, colostomy reversal and ileostomy formation this admit per EMR. Per Med list on H&P it appears that pt has been on TPN. Pharmacy and RN unaware of any TPN orders, no TPN consult received thus far. Pt currently NPO. Paged MD regarding TPN orders. Will place TPN recs below in case pt to start. Pt w/ minimal stool output. Will continue to monitor. Recs: 1. IF TPN, 2:1 Clinimix E 5/20 w/ goal 80ml/hr and additional 250ml 20% ILE to run at 20.83ml/hr for 12hr 2x/week. To provide 1920ml volume, avg 1832kcals, 96g AA, 384g dextrose (3.19mg/kg/min GIR) 2. IF TPN PALB/TG Q / 3. Daily wts 4. Bowel care per Addendum: 03/13/22 at [address] Amended: Links added.
[2022-03-13 11:00] VITALS: BP 132/72
[2022-03-13] MEDS: piperacillin/tazo 3.375gm/50ml 50 ML IV SCH ×3 (13:25→23:54)
[2022-03-13 15:00] VITALS: BP 147/77
[2022-03-13] MEDS: ondansetron/PF 4mg/2ml inj IV PRN (16:47)
[2022-03-13 18:00] VITALS: BP 139/76
--- NOTE | 2022-03-13 19:20 | NUR ---
Patient in room PCU 3018. I have received report from LUIS CARLOS LOPES and had the opportunity to ask questions and assume patient care.
[2022-03-13] MEDS ORDERED: K and/or MAG REPLACEMENT MC SCH (20:00)
[2022-03-13] MEDS: insulin glargine (Lantus) pen - multi-dose SQ SCH (21:00)
[2022-03-13 22:00] VITALS: BP 135/73
[2022-03-14] VITALS (7 sets, daily range): BP systolic 124–148; BP diastolic 69–82
[2022-03-14] MEDS: ondansetron/PF 4mg/2ml inj IV PRN ×3 (00:02→17:56)
[2022-03-14] MEDS: albuterol 2.5 MG/3 ML nebule NEB SCH ×6 (02:26→23:53)
[2022-03-14] MEDS: normal saline 1000ml 1,000 ML IV SCH ×3 (05:01→21:15)
[2022-03-14] MEDS: HYDROmorphone 1 mg/ml syringe IV PRN ×4 (05:01→17:49)
--- NOTE | 2022-03-14 06:48 | NUR ---
Problems reprioritized. Patient report given, questions answered & plan of care reviewed with TOM LOPES.
--- NOTE | 2022-03-14 07:04 | NUR ---
Patient in room U 3008. I have received report from MOSES FANG and had the opportunity to ask questions and assume patient care. Addendum: 03/14/22 at 0705 by Agueda Nguyen RN FOR 3018B
[2022-03-14 07:20] LABS: ALANINE AMINOTRANSFERASE 16 U/L (12-78); ALBUMIN 2.2 G/DL (3.4-5.0); ALBUMIN/GLOBULIN RATIO 0.6 (1.1-1.5); ALKALINE PHOSPHATASE 77 IU/L (46-116); ANION GAP 10 (8-16); ASPARTATE AMINO TRANSFERASE 17 U/L (10-37); BILIRUBIN,TOTAL 1.9 MG/DL (0.1-1.0); BLOOD UREA NITROGEN 4 MG/DL (7-18); BUN/CREATININE RATIO 8.2 (5.4-32.0); CALCIUM 8.1 MG/DL (8.5-10.1); CHLORIDE 107 MMOL/L (99-107); CREATININE 0.49 MG/DL (0.60-1.10); GLUCOSE 97 MG/DL (70-104); MAGNESIUM 1.7 MG/DL (1.5-2.4); SODIUM 143 MMOL/L (135-145); TOTAL CARBON DIOXIDE 25.7 MMOL/L (24-32); TOTAL PROTEIN 5.9 G/DL (6.4-8.2); eGFR > 90 ML/MIN
[2022-03-14 07:31] LABS: BASOPHILS % (AUTO) 0.3 % (0-1); EOSINOPHILS % (AUTO) 1.1 % (0-6); HEMATOCRIT 28.1 % (42.0-52.0); HEMOGLOBIN 9.7 g/dl (14.0-17.9); LYMPHOCYTES # (AUTO) 0.5 X10'3 (1.1-4.8); LYMPHOCYTES % (AUTO) 11.5 % (21-51); MEAN CORPUSCULAR HEMOGLOBIN 30.2 PG (27.0-31.0); MEAN CORPUSCULAR HGB CONC 34.4 g/dL (33.0-36.5); MEAN CORPUSCULAR VOLUME 87.8 FL (78-98); MONOCYTES # (AUTO) 0.3 X10'3 (0-0.9); MONOCYTES % (AUTO) 6.5 % (2-12); NEUTROPHILS # (AUTO) 3.5 X10'3 (1.8-7.7); NEUTROPHILS % (AUTO) 80.6 % (42-75); PLATELET COUNT 181 X10'3 (140-440); WHITE BLOOD COUNT 4.4 X10'3 (4.5-11.0)
[2022-03-14] MEDS: K and/or MAG REPLACEMENT MC SCH ×2 (08:00→19:26)
--- NOTE | 2022-03-14 08:38 | NUR ---
f/u 03/14: Per Surgeon pt will not need TPN, recommend advance to Low Fiber diet as tolerated Recs: 1. Advance to Low fiber diet as tolerated 2. IF TPN, 2:1 Clinimix E 5/20 w/ goal 80ml/hr and additional 250ml 20% ILE to run at 20.83ml/hr for 12hr 2x/week. To provide 1920ml volume, avg 1832kcals, 96g AA, 384g dextrose (3.19mg/kg/min GIR) 3. IF TPN PALB/TG Q / 4. Daily wts 5. Bowel care per Addendum: 03/14/22 at [address] Amended: Links added.
[2022-03-14] MEDS: enoxaparin 40mg/0.4ml syringe SQ SCH (08:50)
[2022-03-14] MEDS: piperacillin/tazo 3.375gm/50ml 50 ML IV SCH ×2 (08:50→16:43)
[2022-03-14] MEDS ORDERED: proMETHazine 25mg tablet PO PRN (10:15)
[2022-03-14] MEDS: pantoprazole 40MG/NS 100ML BAG 100 ML IV SCH (13:37)
[2022-03-14] MEDS: meropenem inj 1 GM in normal saline 100ml IV soln 100 ML IV SCH (18:59)
[2022-03-14] MEDS ORDERED: HYDROmorphone 1 mg/ml syringe IV PRN (19:35)
--- NOTE | 2022-03-14 19:37 | NUR ---
Problems reprioritized. Patient report given, questions answered & plan of care reviewed with MOSES RUTHERFORD.
--- NOTE | 2022-03-14 19:39 | NUR ---
THROUGH OUT THE DAY THE PATIENT HAD SOME NAUSEA AND VOMITING, I NOTICED THAT EVERY TIME I GAVE DILAUDID THE PATIENT WOULD VOMIT. PATIENT STATED THAT YESTERDAY HE STARTED GETTING NAUSEOUS WHEN GETTING DILAUDID. TALKED TO THE DR, NATALYA'D DILAUDID AND ORDERED MORPHINE. WHILE TALKING TO PATIENT AND FAMILY MEMBER EXPRESSED THEIR WORRY THAT MORPHINE WOULD NOT BE ENOUGH PAIN RELIEF FOR DRESSING CHANGES. CALLED DR BACK GOT DILAUDID FOR DRESSING CHANGES AND DR ORDERED AN NG TUBE TO BE PLACED FOR NAUSEA AND VOMITING. SPOKE WITH PATIENT ABOUT THE NG TUBE, PATIENT HAS REFUSED NG TUBE AT THIS TIME
[2022-03-14] MEDS: insulin glargine (Lantus) pen - multi-dose SQ SCH (21:00)
[2022-03-14] MEDS: morphine 4 MG/ML inj SYRINge IV PRN (21:33)
[2022-03-15] MEDS: meropenem inj 1 GM in normal saline 100ml IV soln 100 ML IV SCH ×2 (00:20→09:06)
[2022-03-15] MEDS: piperacillin/tazo 3.375gm/50ml 50 ML IV SCH ×3 (00:20→16:12)
[2022-03-15] MEDS: morphine 4 MG/ML inj SYRINge IV PRN ×3 (00:31→08:45)
[2022-03-15] MEDS: ondansetron/PF 4mg/2ml inj IV PRN ×2 (00:31→08:57)
[2022-03-15] MEDS: albuterol 2.5 MG/3 ML nebule NEB SCH ×6 (02:56→23:11)
[2022-03-15] MEDS: normal saline 1000ml 1,000 ML IV SCH ×3 (04:25→19:28)
--- NOTE | 2022-03-15 05:31 | NUR ---
Dr. Solares ordered an N/G tube be inserted but the patient refused the N/G insertion.
[2022-03-15 06:00] VITALS: BP 146/68
--- NOTE | 2022-03-15 07:16 | NUR ---
Patient in room PCU 3018B. I have received report from MOSES RUTHERFORD and had the opportunity to ask questions and assume patient care.
[2022-03-15 07:19] LABS: MAGNESIUM 1.6 MG/DL (1.5-2.4); POTASSIUM 3.7 MMOL/L (3.5-5.1)
[2022-03-15] MEDS: K and/or MAG REPLACEMENT MC SCH ×2 (08:00→19:29)
[2022-03-15] MEDS: pantoprazole 40MG/NS 100ML BAG 100 ML IV SCH (08:38)
[2022-03-15] MEDS: enoxaparin 40mg/0.4ml syringe SQ SCH (08:51)
[2022-03-15 11:00] VITALS: BP 147/73
--- NOTE | 2022-03-15 11:16 | NUR ---
F/u 03/15: Pt advanced to clear liquid diet last night PO 0% first meal noted to have N/V though likely from dilaudid now on fentanyl patch per EMR. Attempt for NG placement given N/V though pt refused; pending PO intake this AM. Ileostomy -300ml past 24 hours per EMR. Pt now day 6 no nutrition this admit w/ mild weakness, mild lower/upper extremities edema and meets non-severe malnutrition criteria; notified. RD d/w RN regarding TPN in addition to clear liquids if MD agreeable given pt on TPN w/ PO at [facility] prior to admit per EMR. Low Glu 03/13 AM s/p dextrose. Will monitor for further nutrition intervention needs this admit. Recs: 1. 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 IF TPN, 2:1 Clinimix E 5/20 w/ goal 80ml/hr and additional 250ml 20% ILE to run at 20.83ml/hr for 12hr 2x/week. To provide 1920ml volume, avg 1832kcals, 96g AA, 384g dextrose (3.19mg/kg/min GIR) 3. IF TPN PALB/TG Q / 4. Scaled wt this admit; subsequent daily wts 5. Bowel care per Addendum: 03/15/22 at [address] Amended: Links added.
[2022-03-15] MEDS: CefTRIAXone 2gm/D5W 50ml BAG 50 ML IV SCH (12:15)
[2022-03-15] MEDS: fentaNYL 100MCG/hour patch.TD72 TD SCH (12:17)
[2022-03-15] MEDS: HYDROmorphone inj. 0.5 MG/0.5 ML DISP.SYRIN IV PRN ×2 (16:12→21:14)
--- NOTE | 2022-03-15 18:48 | NUR ---
Problems reprioritized. Patient report given, questions answered & plan of care reviewed with MOSES RUTHERFORD.
[2022-03-15 18:50] VITALS: BP 139/73
[2022-03-15] MEDS: insulin glargine (Lantus) pen - multi-dose SQ SCH (21:00)
[2022-03-15 22:00] VITALS: BP 139/77
[2022-03-16] MEDS: piperacillin/tazo 3.375gm/50ml 50 ML IV SCH ×3 (00:21→16:37)
[2022-03-16 02:00] VITALS: BP 145/77
[2022-03-16] MEDS: albuterol 2.5 MG/3 ML nebule NEB SCH ×6 (02:49→23:30)
[2022-03-16] MEDS: ondansetron/PF 4mg/2ml inj IV PRN (02:50)
[2022-03-16] MEDS: HYDROmorphone inj. 0.5 MG/0.5 ML DISP.SYRIN IV PRN ×5 (02:52→22:19)
[2022-03-16] MEDS: normal saline 1000ml 1,000 ML IV SCH ×3 (03:09→22:18)
[2022-03-16 06:00] VITALS: BP 159/76
--- NOTE | 2022-03-16 06:36 | NUR ---
Patient in room PCU 3018B. I have received report from MOSES RUTHERFORD and had the opportunity to ask questions and assume patient care.
--- NOTE | 2022-03-16 06:40 | NUR ---
Problems reprioritized. Patient report given, questions answered & plan of care reviewed with TOM. Addendum: 03/16/22 at 0640 by Kev Ascencio RN Amended: Links added.
[2022-03-16 06:47] LABS: MAGNESIUM 1.6 MG/DL (1.5-2.4); POTASSIUM 3.3 MMOL/L (3.5-5.1)
[2022-03-16] MEDS: enoxaparin 40mg/0.4ml syringe SQ SCH (07:27)
[2022-03-16] MEDS: pantoprazole 40MG/NS 100ML BAG 100 ML IV SCH (07:27)
[2022-03-16] MEDS: K and/or MAG REPLACEMENT MC SCH ×2 (08:00→20:00)
[2022-03-16] MEDS: CefTRIAXone 2gm/D5W 50ml BAG 50 ML IV SCH (09:39)
[2022-03-16] MEDS: HYDROmorphone 1 mg/ml syringe IV PRN (10:28)
--- NOTE | 2022-03-16 12:02 | NUR ---
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 No need for DM ed at this time. Addendum: 03/16/22 at [address] Amended: Links added.
--- NOTE | 2022-03-16 13:27 | NUR ---
OSTOMY FACTS: Almost everyone has know of, or met, businessmen, entertainers, athletes, and people from all walks of life who have an ostomy. Ostomates (a person that has an ostomy) can ski, ride horses, bowl, and get healthy exercise in countless ways. Your usual activities of daily living can be resumed as soon as you are able. Gradually you will be able to wear the clothes worn before surgery. With modern pouches, nothing is noticeable under your clothing. It may be difficult at first to believe that an intimate relationship can be possible when one's body has been disfigured by surgery. This is not true. Love, fortunately, is not easily destroyed when it is based on genuine appreciation of a person as a thinking, feeling, reacting human being. AN OSTOMY IS NOT AN IMPAIRMENT!! DEFINITIONS: 1.OSTOMY: An opening that is created by a surgical procedure. The opening is called a "stoma". 2.STOMA: A surgical opening in the abdomen (belly) where intestine is brought through the abdominal wall and connected at the skin level. A stoma is shiny, wet and at first is dark purple but eventually turns pink, similar to the inside lining of your mouth. 3.COLON: A portion of the large bowel. 4.COLOSTOMY: A fecal diversion with an opening, (stoma) created anywhere along the colon. Making a connection between the colon and the abdominal wall. 5.ILLEOSTOMY: A fecal diversion with an opening, (stoma) created in the small intestine. Making a connection between the small intestine and the abdominal wall. 6.UROSTOMY: A urinary diversion with the ureters connected to a segment of the small bowel and one end is brought out and connected to the abdominal wall, creating a stoma. SHAPES and SIZES: "The stoma is usually round or oval. "It is anywhere from a dime to half dollar in size. "A stoma reaches its permanent size 6-8 weeks after surgery. PRODUCTS: 1.POUCH or APPLIANCE: An external device to contain stool or urine output and protect the skin around the stoma. It can be a one piece pouch or two pieces (a pouch and a wafer). 2.BARRIER: Substance that is used to protect the skin around the stoma from drainage and adhesive. 3.SKIN PREP or SEALANT: Product applied to the skin to reduce injury from moisture, drainage, or repeated pouch removal. Available in spray or wipes. 4.CLOSURE or CLAMP: A device used to close the bottom of a drainable pouch. 5.BRIDGE or KOLTON: A piece of plastic placed under a loop of bowel on the skins surface, to secure the bowel in place while the skin heals. POUCH CHANGE PROCEEDURE: 1.Assemble all the supplies "1 or 2 piece appliance "Ostomy paste (if needed) "Ostomy powder (if needed) "Skin prep wipes ( not recommended with coloplast products) "Moist wash cloth or cotton balls 2.Remove plastic center and paper backing from pouch. If pouch or wafer is not precut, use the sizing guide, or plastic backing from pouch to make a pattern. Do this by placing the paper over the stoma and trace it, or draw a pattern. Cut the wafer to fit and set it aside. 3.Remove old pouch by lifting up on tape while pressing skin down away from the tape. If there is a clip on your pouch, remove it and save it. 4.Clean skin or stoma with moistened wash cloth or cotton balls. Place a clean cotton ball over stoma hole to catch any drainage. Let skin dry. 5.For grooves or uneven areas in the skin- apply ostomy paste and sprinkle with ostomy powder, then gently shape the past so the area around the stoma is smooth and as flat as possible. Wipe off or blow away excess. Blot powder with skin prep wipe (DO NOT wipe powder). Let dry until no longer sticky. 6.For irritated or reddened skin- sprinkle ostomy powder on red or irritated area. Wipe off or blow away excess. Blot powder with skin prep wipe (DO NOT wipe powder). Let dry until no longer sticky. 7.Apply skin prep wipe to skin to which the pouch and tape will adhere. Let dry until no longer sticky. 8.If you have a one piece appliance- apply pouch so it is centered around the stoma. No skin should be exposed to stool. All skin should be covered by paste or pouch. 9.If you have a two piece appliance- Apply the wafer as described above, then snap or stick pouch onto wafer. Check to make sure wafer and pouch are securely connected. 10.Place clip on bottom of pouch. 11.Empty pouch when 1/3 full. OSTOMY SKIN CARE: "Good health care and nutrition are essential for healthy skin. "Usually a correct pouch size will prevent skin breakdown. "Use warm water and soap for skin cleansing. "Do not use creams or oil based products on skin around the stoma. This will prevent the appliance from sticking. "Use skin prep around the stoma. IT CAN TAKE 24 HOURS TO SEVERAL DAYS FOR SKIN TO HEAL. IF IT IS NOT RESOLVING, OR GETTING WORSE, CALL YOUR PRIMARY CARE DOCTOR. PRESSURE ULCER EDUCATION: DEFINITION: A pressure ulcer is an area of skin that breaks down when you stay in one position too long. The constant pressure against the skin reduces the blood flow to that area and the affected tissue dies. CAUSES: "Being bedridden or in a wheelchair "Fragile skin "Having a chronic condition, such as diabetes or vascular disease "Inability to move certain parts of your body without assistance "Older age "Incontinence of urine or stool SYMPTOMS: "A reddened area that DOES NOT turn white when pressed on - this can be the beginning of a pressure ulcer "A blister, deep sore or a crater - these can be advanced pressure ulcers FIRST AID: "Relieve the pressure on this area "Keep the area clean and dry "Call your primary doctor if you see any of the above symptoms "DO NOT massage the area "DO NOT use a donut shaped or ring shaped pillow- these actually interfere with the blood flow and cause complications PREVENTION: "Check for pressure ulcers everyday "Change position at least every two hours to relieve pressure "Use items that help relieve pressure- pillows, sheepskin, foam padding, and powders. "Keep skin clean and dry "Eat healthy well balanced meals "Exercise daily IF YOU SEE ANY OF THESE SYMPTOMS WHILE IN THE HOSPITAL - TELL YOUR NURSE IMMEDIATELY. IF YOU SEE ANY OF THESE SYMPTOMS WHILE AT HOME OR HAVE ANY QUESTIONS OR CONCERNS ABOUT PRESSURE ULCERS - CALL YOUR PRIMARY DOCTOR IMMEDIATELY. Addendum: 03/16/22 at 1327 by Florina Eddy LVN Amended: Links added.
[2022-03-16 14:38] LABS: ALANINE AMINOTRANSFERASE 16 U/L (12-78); ALBUMIN/GLOBULIN RATIO 0.6 (1.1-1.5); ALKALINE PHOSPHATASE 98 IU/L (46-116); ANION GAP 9 (8-16); ASPARTATE AMINO TRANSFERASE 15 U/L (10-37); BLOOD UREA NITROGEN 5 MG/DL (7-18); BUN/CREATININE RATIO 11.6 (5.4-32.0); CALCIUM 7.5 MG/DL (8.5-10.1); CHLORIDE 107 MMOL/L (99-107); CREATININE 0.43 MG/DL (0.60-1.10); GLUCOSE 118 MG/DL (70-104); SODIUM 142 MMOL/L (135-145); TOTAL CARBON DIOXIDE 25.6 MMOL/L (24-32); TOTAL PROTEIN 5.6 G/DL (6.4-8.2); eGFR > 90 ML/MIN
[2022-03-16 15:00] VITALS: BP 148/72
[2022-03-16] MEDS: potassium Cl 20 mEq SR tablet PO PRN ×2 (16:40→20:29)
[2022-03-16 18:00] VITALS: BP 143/78
--- NOTE | 2022-03-16 18:44 | NUR ---
Problems reprioritized. Patient report given, questions answered & plan of care reviewed with MOSES NÚÑEZ.
[2022-03-16] MEDS: insulin glargine (Lantus) pen - multi-dose SQ SCH (21:00)
[2022-03-16] MEDS ORDERED: furosemide 20 MG/2 ML vial IV ONE (21:40)
--- NOTE | 2022-03-16 21:56 | NUR ---
Called and spoke with Dr. Collado in regards to pt's AM potassium level 3.3 and got x1 dose of 3 for replacement. Pt states he doesn't want po replacement and is requesting IV replacement. MD stated since already got x1 dose. Ok to not complete replacement and just check am level to see if need further replacement.
[2022-03-16 22:00] VITALS: BP 144/72
[2022-03-17] MEDS: piperacillin/tazo 3.375gm/50ml 50 ML IV SCH ×4 (00:44→23:47)
[2022-03-17 02:00] VITALS: BP 151/76
[2022-03-17] MEDS: albuterol 2.5 MG/3 ML nebule NEB SCH ×6 (03:37→23:51)
[2022-03-17] MEDS: HYDROmorphone inj. 0.5 MG/0.5 ML DISP.SYRIN IV PRN ×3 (04:13→20:16)
[2022-03-17] MEDS: normal saline 1000ml 1,000 ML IV SCH (05:54)
[2022-03-17 06:00] VITALS: BP 151/78
[2022-03-17 06:52] LABS: ALANINE AMINOTRANSFERASE 15 U/L (12-78); ALBUMIN 2.1 G/DL (3.4-5.0); ALBUMIN/GLOBULIN RATIO 0.6 (1.1-1.5); ALKALINE PHOSPHATASE 97 IU/L (46-116); ANION GAP 11 (8-16); ASPARTATE AMINO TRANSFERASE 14 U/L (10-37); BILIRUBIN,TOTAL 0.9 MG/DL (0.1-1.0); BLOOD UREA NITROGEN 2 MG/DL (7-18); BUN/CREATININE RATIO 5.1 (5.4-32.0); CALCIUM 7.5 MG/DL (8.5-10.1); CHLORIDE 105 MMOL/L (99-107); CREATININE 0.39 MG/DL (0.60-1.10); GLUCOSE 122 MG/DL (70-104); MAGNESIUM 1.4 MG/DL (1.5-2.4); SODIUM 142 MMOL/L (135-145); TOTAL CARBON DIOXIDE 26.4 MMOL/L (24-32); TOTAL PROTEIN 5.7 G/DL (6.4-8.2); eGFR > 90 ML/MIN
--- NOTE | 2022-03-17 07:21 | NUR ---
1800 Report given to this RN from MOSES Romeo. Care assumed. Pt had uneventful fast food shift lead. Dressing remained clean and intact. Pt able to make repositions in bed. Pt continues to get pain meds. 0600 Report given to MOSES Thorpe. Questions answered. Pt in no acute distress at time of handoff.
[2022-03-17] MEDS: enoxaparin 40mg/0.4ml syringe SQ SCH (07:51)
[2022-03-17] MEDS: CefTRIAXone 2gm/D5W 50ml BAG 50 ML IV SCH (07:52)
[2022-03-17] MEDS: pantoprazole 40MG/NS 100ML BAG 100 ML IV SCH (07:52)
[2022-03-17] MEDS: HYDROmorphone 1 mg/ml syringe IV PRN ×2 (08:15→12:28)
--- NOTE | 2022-03-17 09:25 | NUR ---
PAGER ID: [phone] MESSAGE: BRITTNEE BUCKLEY [id number] CRITICAL POTASSIUM 3.0 NO MEDS ORDERED FOR REPLACEMENT THANK YOU, PARESH LOPES
[2022-03-17 11:00] VITALS: BP 142/76
[2022-03-17] MEDS ORDERED: POTASSIUM BICARB 20meq eff tab 20 MEQ TABLET.EFF PO PRN ×2 (11:15)
[2022-03-17] MEDS ORDERED: magnesium 2GM in 50ml NS 50 ML IV PRN (11:15)
[2022-03-17] MEDS ORDERED: magnesium 4gm in 100ml NS 100 ML IV PRN ×2 (11:15→11:20)
[2022-03-17] MEDS ORDERED: magnesium Cl slow-release 64mg tablet PO PRN ×2 (11:15→11:20)
[2022-03-17] MEDS ORDERED: potassium CL 10mEq/100ml bag 100 ML IV PRN (11:20)
[2022-03-17] MEDS: potassium CL 10mEq/100ml bag 100 ML IV PRN ×6 (11:38→23:41)
--- NOTE | 2022-03-17 13:48 | NUR ---
Nutrition consult: Pt and SO seen at bedside for thorough written and verbal ileostomy nutrition therapy education. 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 All of patient's and SO's questions were answered at this time. Noted pt currently on a CHO controlled diet however A1c is 6.5% and overall BG levels well controlled during admit. Paged MD and called RN regarding diet change to low fiber. Pt states appetite is just okay as he is experiencing nausea post-op of which he reports receiving PRN anti-emetics for. 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 RD encouraged pt to go at his own pace with meals and obtained food preferences that were d/w dietary to optimize PO intake, see below. Pt/SO provided with RD contact information and encouraged to reach out if needed. LBM 03/17 documented with 50 mL stool output however with 850 mL stool output 03/16 per EMR. Will continue to follow closely. Recommendations: 1. Diet change to low fiber; monitor PO intake and need for nutrition support 2. [place] food preferences: cream of wheat and yogurt WB, pudding WL, ice cream WS, milk TID; alternate peaches/pears with meals; no oatmeal or cottage cheese 3. IF TPN, 2:1 Clinimix E 5/20 w/ goal 80ml/hr and additional 250ml 20% ILE to run at 20.83ml/hr for 12hr 2x/week. To provide 1920ml volume, avg 1832kcals, 96g AA, 384g dextrose (3.19mg/kg/min GIR) 4. IF TPN PALB/TG Q / 5. Weekly scaled weights 6. Bowel care per MD Addendum: 08/31/22 at [address] Amended: Links added.
[2022-03-17] MEDS ORDERED: albumin (human) 25% 100ml IV 100 ML IV ONE (13:55)
[2022-03-17 18:00] VITALS: BP 139/69
[2022-03-17] MEDS: K and/or MAG REPLACEMENT MC SCH (20:00)
[2022-03-17] MEDS ORDERED: K and/or MAG REPLACEMENT MC SCH (20:00)
[2022-03-17] MEDS: insulin glargine (Lantus) pen - multi-dose SQ SCH (21:00)
[2022-03-17 23:30] VITALS: BP 142/74
[2022-03-18] MEDS: potassium CL 10mEq/100ml bag 100 ML IV PRN ×3 (01:02→13:07)
[2022-03-18] MEDS: HYDROmorphone inj. 0.5 MG/0.5 ML DISP.SYRIN IV PRN ×4 (01:02→18:47)
[2022-03-18 02:00] VITALS: BP 141/78
[2022-03-18] MEDS: albuterol 2.5 MG/3 ML nebule NEB SCH ×6 (03:17→21:59)
[2022-03-18 06:00] VITALS: BP 140/73
--- NOTE | 2022-03-18 06:00 | NUR ---
1800 Report given to this RN from MOSES Thorpe. Care assumed. Pt in no acute distress. Pt had uneventful overnight shift. He got dilaudid for pain. Pt is still reluctant for turns at times. He got several doses of potassium replacement. Addendum: 03/18/22 at 0644 by Rosas Murillo RN Report given back to MOSES Thorpe at bedside. Questions answered. Pt in no acute distress at time of handoff.
[2022-03-18] MEDS: normal saline 1000ml 1,000 ML IV SCH ×2 (07:02→10:36)
[2022-03-18] MEDS: K and/or MAG REPLACEMENT MC SCH ×2 (08:00→19:46)
[2022-03-18] MEDS: pantoprazole 40MG/NS 100ML BAG 100 ML IV SCH (08:04)
[2022-03-18] MEDS: CefTRIAXone 2gm/D5W 50ml BAG 50 ML IV SCH (08:04)
[2022-03-18] MEDS: enoxaparin 40mg/0.4ml syringe SQ SCH (08:04)
[2022-03-18] MEDS: piperacillin/tazo 3.375gm/50ml 50 ML IV SCH ×2 (08:05→16:50)
[2022-03-18 08:30] LABS: MAGNESIUM 1.4 MG/DL (1.5-2.4); POTASSIUM 3.4 MMOL/L (3.5-5.1)
[2022-03-18] MEDS: HYDROmorphone 1 mg/ml syringe IV PRN (09:12)
[2022-03-18 10:00] VITALS: BP 141/72
[2022-03-18] MEDS: fentaNYL 100MCG/hour patch.TD72 TD SCH (13:07)
--- NOTE | 2022-03-18 14:40 | NUR ---
PAGER ID: [phone] MESSAGE: jignesh murphy rm [id number] pt requesting additional pain meds. thank you, edward gaines
[2022-03-18] MEDS ORDERED: HYDROmorphone inj. 0.5 MG/0.5 ML DISP.SYRIN IV ONE (15:05)
--- NOTE | 2022-03-18 15:42 | NUR ---
Ostomy pouch in place and was placed on 03/16/2022. Soft stool in drainage bag. Addendum: 03/18/22 at 1552 by Danielle Olivares RN Amended: Links added.
--- NOTE | 2022-03-18 15:45 | NUR ---
WOUND INFECTION EDUCATION PROVIDED BY WOUND CARE 1. Patient instructed to call their primary doctor, or go the ED immediately if any of the following symptoms occur: * Increased pain in wound * Increase in drainage from the wound * Redness in the skin surrounding the wound * Warmth in the skin surrounding the wound * Bleeding from the wound * Temperature of 101 or greater 2. If any of these occur while in the hospital tell a nurse immediately. Addendum: 03/18/22 at 1545 by Danielle Olivares RN Amended: Links added.
[2022-03-18] MEDS: ondansetron/PF 4mg/2ml inj IV PRN (18:53)
[2022-03-18] MEDS: diazepam inj 5 MG/ML inj. IV PRN (21:57)
[2022-03-19] MEDS: HYDROmorphone inj. 0.5 MG/0.5 ML DISP.SYRIN IV PRN (00:02)
== END 2022-03-19 00:15 | DRG 230 ==
LOC: ORTHO 4S 14:33 → ICU 2S 03-10 13:53 → PCU 3S 03-12 16:00
PROVIDERS: ADMIT Surgery; ATTEND Surgery
PROC: 0DBG0ZZ Excision of Left Large Intestine, Open Approach (ICD-10-PCS; 2022-03-10)
PROC: 0DP60UZ Removal of Feeding Device from Stomach, Open Approach (ICD-10-PCS; 2022-03-10)
PROC: 0DB80ZZ Excision of Small Intestine, Open Approach (ICD-10-PCS; 2022-03-10)
PROC: 079 Lymphatic and Hemic Systems, Drainage (ICD-10-PCS; 2022-03-10)
PROC: 0T9880Z Drainage of Bilateral Ureters with Drainage Device, Via Natural or Artificial Opening Endoscopic (ICD-10-PCS; 2022-03-10)
PROC: 0DN80ZZ Release Small Intestine, Open Approach (ICD-10-PCS; principal; 2022-03-10 07:47)
PROC: 0D1B0Z4 Bypass Ileum to Cutaneous, Open Approach (ICD-10-PCS; 2022-03-10 07:47)
PROC: 30233N1 Transfusion of Nonautologous Red Blood Cells into Peripheral Vein, Percutaneous Approach (ICD-10-PCS; 2022-03-11)
DX: K63.2 Fistula of intestine (principal); G93.41 Metabolic encephalopathy; K57.20 Diverticulitis of large intestine with perforation and abscess without bleeding; E87.1 Hypo-osmolality and hyponatremia; E11.65 Type 2 diabetes mellitus with hyperglycemia; B96.1 Klebsiella pneumoniae [K. pneumoniae] as the cause of diseases classified elsewhere; D64.9 Anemia, unspecified; F41.9 Anxiety disorder, unspecified; G89.4 Chronic pain syndrome; Z20.822 Contact with and (suspected) exposure to COVID-19; I10 Essential (primary) hypertension; J45.909 Unspecified asthma, uncomplicated; K66.0 Peritoneal adhesions (postprocedural) (postinfection); Z90.49 Acquired absence of other specified parts of digestive tract; Z88.8 Allergy status to other drugs, medicaments and biological substances
CPT/HCPCS: 36415; 36430; 71045; 74018; 76000; 80048; 80053; 81003; 82948; 83036; 83605; 83735; 84100; 84132; 85025; 85610; 85730; 86870; 86880; 86885; 86900; 86901; 86920; 86922; 87040; 87070; 87075; 87076; 87077; 87185; 87186; 87811; 93005; 94640; 94760; 97110; 97161; 97530; A4349; A4615; A4618; A4649; A6196; A6209; A6212; A6213; A6253; A6258; A6402; A6446; A6449; A7000; B4087; C1758; C1769; C9113; G0378; J0131; J0694; J0696; J1100; J1170; J1644; J1650; J1815; J1940; J2060; J2185; J2250; J2270; J2405; J2543; J2710; J3010; J3360; J3475; J3480; J3490; J7030; J7040; J7050; J7120; P9016; P9045; P9047; Q0169; Q9967

== ENCOUNTER 2022-03-10 12:00 | Outpatient (CLI) | payer MEDICAID ==
[~2022-03-10 12:00] MED LIST changes: -ACET-3080 PO; -DOCU283E RC; +FENT1PAT13 TOP; +FORM20VI IH; +HYDR1LIQ3 IV; -INSU100V43 SQ; +INSU100V5 IJ; -LANTUS SQ; -LIDO700A32 TOP; +LIDOcaine 1% (10mg/ml)w/preservative inj. 20ml MDV ONE; +LORA-269 PO; -LORA2VIA4 IJ; +PANT-47 IVP; -PANT40VI2 IV; -PIPE3.3712 IV; -POLY17PO10 PO; +[UNRECOGNIZED DRUG - CODE]; -[UNRECOGNIZED DRUG - CODE] IV; -[UNRECOGNIZED DRUG - CODE] IV; +albumin (Human) 5% 250ml 250 ML IV ONE; +albumin (human) 25% 100ml IV 100 ML IV ONE; +ceFOXitin 2GM-NS 100mL ADDvant 100 ML IV ONE; +dexamethasone sod phosphate 4mg/ml inj. ONE; +dexmedetomidine 200mcg/2ml inj. IV ONE; +famotidine 20mg tablet PO ONE; +fentaNYL/PF 50MCG/1 ML 2ML syringe ONE; +glycopyrrolate 0.2mg/ml inj ONE; +metoprolol tartrate 1mg/ml inj IV ONE; +midazolam 1 mg/ML 2ml injection ONE; +neostigmine methylsulfate 1 MG/ML 10ml vial ONE; +ondansetron/PF 4mg/2ml inj ONE; +propofol 10mg/ml 20ml vial IV ONE; +ringers solution, lacted 1,000 ML IV SCH; +rocuronium 10mg/ml inj IV ONE; +sevoflurane 250ml liquid IH ONE; +sugammadex 200mg/2ml injection IV ONE
[2022-03-10] MEDS ORDERED: fentaNYL/PF 50MCG/1 ML 2ML syringe ONE ×2 (12:03→12:05)
== END 2022-03-10 12:01 | disposition home or self-care (01) ==
LOC: LAB 12:00
PROVIDERS: ATTEND Surgery
DX: Z53.9 Procedure and treatment not carried out, unspecified reason (principal)
CPT/HCPCS: J2704; J3490; 74018; 76000; A6258; J0694; J1100; J2250; J2405; J2710; J3010; J7120; P9045; P9047

== ENCOUNTER 2022-05-25 10:27 | Outpatient (CLI) | payer MEDICAID ==
[~2022-05-25 10:27] MED LIST changes: -LIDOcaine 1% (10mg/ml)w/preservative inj. 20ml MDV ONE; -albumin (Human) 5% 250ml 250 ML IV ONE; -albumin (human) 25% 100ml IV 100 ML IV ONE; -ceFOXitin 2GM-NS 100mL ADDvant 100 ML IV ONE; -dexamethasone sod phosphate 4mg/ml inj. ONE; -dexmedetomidine 200mcg/2ml inj. IV ONE; -famotidine 20mg tablet PO ONE; -fentaNYL/PF 50MCG/1 ML 2ML syringe ONE; -glycopyrrolate 0.2mg/ml inj ONE; -metoprolol tartrate 1mg/ml inj IV ONE; -midazolam 1 mg/ML 2ml injection ONE; -neostigmine methylsulfate 1 MG/ML 10ml vial ONE; -ondansetron/PF 4mg/2ml inj ONE; -propofol 10mg/ml 20ml vial IV ONE; -ringers solution, lacted 1,000 ML IV SCH; -rocuronium 10mg/ml inj IV ONE; -sevoflurane 250ml liquid IH ONE; -sugammadex 200mg/2ml injection IV ONE
[2022-05-25] MEDS ORDERED: VITA-268 PO (15:46)
[2022-05-25] MEDS ORDERED: HYDR-3972 PO (15:46)
[2022-05-25] MEDS ORDERED: MULT-1085 PO (15:46)
[2022-05-25] MEDS ORDERED: GABA-530 PO (15:46)
[2022-05-25] MEDS ORDERED: HYDR-3686 PO (15:46)
[2022-05-26] MEDS ORDERED: ALBU8HFA PO (07:11)
== END 2022-05-25 23:59 | disposition home or self-care (01) ==
LOC: RAD 10:27 → EDSTATUS 11:00 → RAD 23:59
PROVIDERS: ATTEND Surgery
DX: Z01.818 Encounter for other preprocedural examination (principal)
CPT/HCPCS: 74270

== ENCOUNTER 2022-05-26 06:35 | Inpatient (IN) | payer MEDICAID ==
[2022-05-25 13:50] LABS: BASOPHILS # (AUTO) 0.1 X10'3 (0-0.2); BASOPHILS % (AUTO) 0.8 % (0-1); EOSINOPHILS # (AUTO) 0.1 X10'3 (0-0.9); LYMPHOCYTES # (AUTO) 1.3 X10'3 (1.1-4.8); LYMPHOCYTES % (AUTO) 14.2 % (21-51); MEAN CORPUSCULAR HEMOGLOBIN 28.8 PG (27.0-31.0); MEAN CORPUSCULAR HGB CONC 33.9 g/dL (33.0-36.5); MEAN CORPUSCULAR VOLUME 85.1 FL (78-98); MEAN PLATELET VOLUME 7.1 FL (7.4-10.4); MONOCYTES # (AUTO) 0.5 X10'3 (0-0.9); MONOCYTES % (AUTO) 5.3 % (2-12); NEUTROPHILS % (AUTO) 78.7 % (42-75); PRE OP HEMATOCRIT 47.1 % (42.0-52.0); PRE OP PLATELET COUNT 212 X10'3 (140-440); RED BLOOD COUNT 5.54 X10'6 (4.70-6.10)
[2022-05-25 14:04] LABS: ALBUMIN 4.4 G/DL (3.4-5.0); ALBUMIN/GLOBULIN RATIO 0.9 (1.1-1.5); ALKALINE PHOSPHATASE 166 IU/L (46-116); BLOOD UREA NITROGEN 10 MG/DL (7-18); BUN/CREATININE RATIO 13.5 (5.4-32.0); CALCIUM 10.3 MG/DL (8.5-10.1); CHLORIDE 99 MMOL/L (99-107); CREATININE 0.74 MG/DL (0.60-1.10); PRE OP ALT 28 U/L (30-65); PRE OP ANION GAP 8 (8-16); PRE OP AST 25 U/L (10-37); PRE OP BILIRUB, TOTAL 0.9 MG/DL (0.0-1.0); PRE OP GLUCOSE 164 MG/DL (70-104); PRE OP SODIUM 138 MMOL/L (135-145); TOTAL CARBON DIOXIDE 30.7 MMOL/L (24-32); TOTAL PROTEIN 9.1 G/DL (6.4-8.2); eGFR > 90 ML/MIN
[~2022-05-26] VITALS: Ht 167.6 cm; Wt 73.0 kg
[2022-05-26] VITALS (19 sets, daily range): BP systolic 98–153; BP diastolic 61–87
[~2022-05-26 06:35] MED LIST changes: -ENOX40SY7 SUBCUT; -FENT1PAT13 TOP; -FORM20VI IH; +GABA-530 PO; +HYDR-3686 PO; +HYDR-3972 PO; -HYDR1LIQ3 IV; -INSU100V5 IJ; -LORA-269 PO; +MULT-1085 PO; -PANT-47 IVP; +VITA-268 PO; -[UNRECOGNIZED DRUG - CODE]; -[UNRECOGNIZED DRUG - CODE] IV; +ceFAZolin inj. 2,000 MG in dextrose 5%-water 100 ML IV ONE; +famotidine 20mg tablet PO ONE; +ringers solution, lacted 1,000 ML IV SCH
[2022-05-26] MEDS ORDERED: ALBU8HFA PO (07:11)
[2022-05-26] MEDS ORDERED: albuterol 2.5 MG/3 ML nebule NEB ONE (07:15)
[2022-05-26] MEDS ORDERED: BUPIVACAINE liposomal/PF 13.3 MG/ML vial IM ONE (08:42)
[2022-05-26] MEDS ORDERED: BUPIVAcaine/PF 2.5mg/ml (0.25%) 10ml vial ONE ×2 (08:43→10:02)
[2022-05-26] MEDS ORDERED: midazolam 1 mg/ML 2ml injection ONE (08:46)
[2022-05-26] MEDS ORDERED: fentaNYL/PF 50MCG/1 ML 2ML syringe ONE (08:46)
[2022-05-26] MEDS ORDERED: propofol inj 20 ML IV ONE (08:48)
[2022-05-26] MEDS ORDERED: LIDOcaine 1%/PF 5ML 10 MG/ML VIAL ONE (08:48)
[2022-05-26] MEDS ORDERED: rocuronium 10mg/ml inj IV ONE ×2 (08:48→10:20)
[2022-05-26] MEDS ORDERED: albumin (Human) 5% 250ml 500 ML IV ONE (09:45)
[2022-05-26] MEDS ORDERED: ondansetron/PF 4mg/2ml inj ONE (09:51)
[2022-05-26] MEDS ORDERED: dexamethasone sod phosphate 4mg/ml inj. ONE (09:51)
--- NOTE | 2022-05-26 10:55 | NUR ---
Received from OR via BED, accompanied by Anesthesiologist and report given by Anesthesiologist. PATIENT WAKING UP, NO S/S OF PAIN, V/S WNL, SCD ON, 20G TO LUE, ABDOMEN DRESSING CDI W/ NO S/S OF COMPLICATIONS. F/C DRAINING CLEAR YELLOW URINE
[2022-05-26] MEDS ORDERED: hydrALAZINE 20mg/ml inj. IV PRN (11:05)
[2022-05-26] MEDS ORDERED: ondansetron/PF 4mg/2ml inj IV PRN ×2 (11:05→11:25)
[2022-05-26] MEDS ORDERED: morphine 4 MG/ML inj SYRINge IV PRN ×2 (11:05→11:25)
[2022-05-26] MEDS ORDERED: fentaNYL/PF 50MCG/1 ML 2ML syringe IV PRN (11:05)
[2022-05-26] MEDS ORDERED: labetalol 20mg/4ml (5mg/ml) syringe IV PRN (11:05)
[2022-05-26] MEDS ORDERED: ringers solution, lacted 1,000 ML IV SCH (11:05)
[2022-05-26] MEDS ORDERED: morphine 2 MG/ML inj. syringe IV PRN (11:05)
[2022-05-26] MEDS ORDERED: morphine 4 MG/ML inj SYRINge ONE (11:18)
[2022-05-26] MEDS ORDERED: HYDROcodone/acetaminophen 10/325mg tab PO PRN (11:25)
[2022-05-26] MEDS: fentaNYL/PF 50MCG/1 ML 2ML syringe IV PRN ×2 (11:32→11:39)
[2022-05-26] MEDS ORDERED: non-formulary drug (albuterol inhaler (Pro-Air Inhaler) 2 PUFFS) PO PRN (11:55)
[2022-05-26] MEDS ORDERED: gabapentin 100mg capsule PO PRN (11:55)
[2022-05-26] MEDS ORDERED: hydrOXYzine 25 MG tablet PO PRN (11:55)
[2022-05-26] MEDS ORDERED: albuterol 2.5 MG/3 ML nebule NEB PRN (12:00)
--- NOTE | 2022-05-26 12:05 | NUR ---
PATIENT A&OX4, C/O 5/10 PAIN SEE EMAR , V/S WNL, SCD ON, 20G TO LUE, ABDOMEN DRESSING CDI W/ NO S/S OF COMPLICATIONS. F/C DRAINING CLEAR YELLOW URINE.PATIENT TAKEN TO ROOM WITH ALL BELONGINGS AND HOOKED UP TO MONITORS IN ROOM AND GIVEN CALL LIGHT, REPORT GIVEN TO RN WHO HAS TAKEN OVER PATIENT CARE.
[2022-05-26] MEDS: HYDROcodone/acetaminophen 10/325mg tab PO PRN (12:41)
--- NOTE | 2022-05-26 12:52 | NUR ---
Received patient to room 343A via bed accompanied by MOSES Preston. Patient alert and oriented and c/o abd pain. Munson given for pain as ordered. Patient with x3 dressings to abd, the one on the right with bloody drainage, will monitor. Patient with valladares catheter draining yellow clear urine to gravity. Oriented patient to room and call light. Call light placed within patient's reach. Bed low and locked. Post op vitals initiated and WNL. Will continue to monitor.
[2022-05-26] MEDS: sod chloride 0.9% 10ml flush syringe IV SCH ×2 (16:00→23:41)
[2022-05-26] MEDS ORDERED: naloxone 0.4 mg/ml inj IV PRN (17:10)
[2022-05-26] MEDS: HYDROmorph/NS 0.2 mg/ml PCA 100 ML IV SCH ×4 (18:25→23:00)
--- NOTE | 2022-05-26 18:25 | NUR ---
Problems reprioritized. Patient report given, questions answered & plan of care reviewed with MOSES Roa.
--- NOTE | 2022-05-26 18:30 | NUR ---
Patient in room [facility] 343. I have received report from ZEUS LOPES and had the opportunity to ask questions and assume patient care.
[2022-05-26] MEDS: normal saline 1000ml 1,000 ML IV SCH (21:05)
[2022-05-27] MEDS: HYDROmorph/NS 0.2 mg/ml PCA 100 ML IV SCH ×12 (01:00→23:00)
--- NOTE | 2022-05-27 06:15 | NUR ---
Problems reprioritized. Patient report given, questions answered & plan of care reviewed with ZEUS LOPES.
--- NOTE | 2022-05-27 06:18 | NUR ---
Patient in room [facility] 343. I have received report from MOSES Roa and had the opportunity to ask questions and assume patient care.
[2022-05-27 06:20] VITALS: BP 105/63
[2022-05-27] MEDS: multivitamins, therapeutics tablet PO SCH (07:14)
[2022-05-27] MEDS: sod chloride 0.9% 10ml flush syringe IV SCH ×4 (08:00→23:33)
[2022-05-27] MEDS: vitamin B comp w/Vit. C tab 1 TAB TABLET PO SCH (09:54)
--- NOTE | 2022-05-27 10:00 | NUR ---
Patient tolerated well dc of valladares catheter. Urinal given to patient.
--- NOTE | 2022-05-27 10:39 | NUR ---
Malnutrition consult: Pt s/p ostomy reversal this admit per EMR. Pt denies any significant wt loss recently and reports a hearty appetite. No visible signs of muscle or fat wasting. No edema noted. Pt does not meet minimum criteria for malnutrition. Pt said he would like normal food now. Communicated w/ RN recommendation for Low fiber diet when okay w/ Surgeon Addendum: 05/27/22 at [address] Amended: Links added.
[2022-05-27 11:14] VITALS: BP 95/55
[2022-05-27 18:40] VITALS: BP 99/59
[2022-05-27 23:09] VITALS: BP 102/56
[2022-05-28] MEDS: HYDROmorph/NS 0.2 mg/ml PCA 100 ML IV SCH ×12 (01:00→23:00)
--- NOTE | 2022-05-28 06:50 | NUR ---
Problems reprioritized. Patient report given, questions answered & plan of care reviewed with MOSES Prado.
[2022-05-28] MEDS: PCA WASTE DOCUMENTATION MC SCH (06:53)
[2022-05-28 07:00] VITALS: BP 98/57
[2022-05-28] MEDS: sod chloride 0.9% 10ml flush syringe IV SCH ×2 (07:40→15:07)
[2022-05-28] MEDS: multivitamins, therapeutics tablet PO SCH (07:40)
[2022-05-28] MEDS: vitamin B comp w/Vit. C tab 1 TAB TABLET PO SCH (07:40)
[2022-05-28 10:00] VITALS: BP 106/61
--- NOTE | 2022-05-28 13:57 | NUR ---
Wound care: Spoke to Whit LOPES regarding consult for surgical wound. She stated nursing is doing it, wet to moist gauze. Encouraged to get order from surgeon.
--- NOTE | 2022-05-28 14:35 | NUR ---
Spoke with Whit regarding an order for dressing changes, patient and doctor requesting me to see patient. I came by after she removed the dressing. I wet the packing with saline and removed, no bleeding present, one stitch is present. cleansed with normal saline, applied hydrogel to the wound bed, applied moist gauze to the wound bed, covered with gauze and secured with tape. Patient and SO are very familiar with how to care for a wound from previous wounds. [facility] and will continue with his home health agency next week. Both understand follow up and dressing care needed.
[2022-05-28] MEDS: normal saline 1000ml 1,000 ML IV SCH (17:10)
[2022-05-28 18:00] VITALS: BP 113/70
--- NOTE | 2022-05-28 18:19 | NUR ---
Problems reprioritized. Patient report given, questions answered & plan of care reviewed with MOSES Rodriguez.
[2022-05-28 22:00] VITALS: BP 100/63
[2022-05-29] MEDS: HYDROmorph/NS 0.2 mg/ml PCA 100 ML IV SCH ×6 (01:00→11:00)
--- NOTE | 2022-05-29 06:10 | NUR ---
Problems reprioritized. Patient report given, questions answered & plan of care reviewed with Sherrill LOPES. Addendum: 05/29/22 at 0611 by Jennifer Mcdermott RN Amended: Links added.
[2022-05-29 07:00] VITALS: BP 114/58
[2022-05-29] MEDS: multivitamins, therapeutics tablet PO SCH (07:10)
[2022-05-29] MEDS: vitamin B comp w/Vit. C tab 1 TAB TABLET PO SCH (07:10)
[2022-05-29] MEDS: sod chloride 0.9% 10ml flush syringe IV SCH ×2 (07:11)
[2022-05-29] MEDS ORDERED: docusate sod 100mg capsule PO SCH (09:50)
[2022-05-29 10:00] VITALS: BP 112/58
[2022-05-29] MEDS: PCA WASTE DOCUMENTATION MC SCH (11:46)
[2022-05-29] MEDS: HYDROcodone/acetaminophen 10/325mg tab PO PRN (11:51)
--- NOTE | 2022-05-29 12:03 | NUR ---
Patient stable and appropriate for discharge home with . IV removed, Dressings changed. Additional dressing supplies given to patient. All discharge instructions and education given and reviewed with patient, all questions answered. New RX have already been sent to preferred pharmacy by Dr. Joe.
== END 2022-05-29 12:00 | disposition home or self-care (01) | DRG 230 ==
LOC: PAS IN 06:35 → UNDOADMIN 06:35 → PAS IN 11:26 → SUR 3N 14:18
PROVIDERS: ADMIT Surgery; ATTEND Surgery
PROC: 0JPT0WZ Removal of Totally Implantable Vascular Access Device from Trunk Subcutaneous Tissue and Fascia, Open Approach (ICD-10-PCS; 2022-05-26)
PROC: 3E0T3BZ Introduction of Anesthetic Agent into Peripheral Nerves and Plexi, Percutaneous Approach (ICD-10-PCS; 2022-05-26)
PROC: 3E0T33Z Introduction of Anti-inflammatory into Peripheral Nerves and Plexi, Percutaneous Approach (ICD-10-PCS; 2022-05-26)
PROC: 0DBB0ZZ Excision of Ileum, Open Approach (ICD-10-PCS; principal; 2022-05-26 09:16)
DX: Z43.2 Encounter for attention to ileostomy (principal); I51.81 Takotsubo syndrome; E11.22 Type 2 diabetes mellitus with diabetic chronic kidney disease; J45.909 Unspecified asthma, uncomplicated; N18.9 Chronic kidney disease, unspecified; F41.9 Anxiety disorder, unspecified; G89.29 Other chronic pain
CPT/HCPCS: 36415; 80053; 82948; 85025; 86885; 86900; 86901; 86922; 87081; 94640; 94760; A4615; A4618; A6213; A6243; A6407; A6449; A7000; C1758; C9290; G0378; J0690; J1100; J1170; J2250; J2270; J2405; J2704; J3010; J3490; J7030; J7040; J7060; J7120